=== PATIENT | female | born 1975 | race Two or more races ===

== ENCOUNTER 2018-11-04 23:05 | Emergency (ER) | payer SELFPAY ==
[~2018-11-04] VITALS: Ht 152.4 cm; Wt 91.6 kg
[~2018-11-04 23:05] MED LIST: IBUP-1060 PO; LABE300T2 PO; OXYC1TAB15 PO
[2018-11-04 23:35] VITALS: BP 159/78
[2018-11-05] MEDS ORDERED: METH4TAB2 PO (00:08)
[2018-11-05] MEDS ORDERED: ORPH100T PO (00:08)
[2018-11-05] MEDS ORDERED: GABA600T7 PO (00:08)
[2018-11-05] MEDS ORDERED: DICL50TA2 PO (00:08)
--- NOTE | 2018-11-05 00:08 | PHYS DOC ---
Past Medical History Past Surgical History: (OFE VAN APRN) Alcohol Use: None Drug Use: None (OFE VAN APRN) Adult General Chief Complaint Chief Complaint: UPPER EXTREMITY PAIN HPI HPI Patient is a 43 year old female with no significant medical history who presents to the ED today complaining of a 7 out of 10 throbbing left upper extremity pain that has been going on for 4 months. Patient states the pain began as far as she can remember after sleeping on her left upper extremity then waking up in the morning with the pain for months ago. She states the pain is intermittent worse on certain times, she states sometimes elevating the left upper extremity above her head helps with the pain. She states once in a while she has intermittent numbness or tingling to the left fingers specifically pinky finger and ring finger. She states the pain typically follows the lateral aspect of the left upper extremity/ulnar aspect. Patient denies any injury. She' s been taking anti-inflammatories from [place]. Family is interpreting for [place] (OFE VAN APRN) Review of Systems Review of Systems Constitutional: Denies fever or chills [] Eyes: Denies change in visual acuity, redness, or eye pain [] HENT: Denies nasal congestion or sore throat [] Respiratory: Denies cough or shortness of breath [] Cardiovascular: No additional information not addressed in HPI [] GI: Denies abdominal pain, nausea, vomiting, bloody stools or diarrhea [] : Denies dysuria or hematuria [] Musculoskeletal: Reports left upper extremity pain Integument: Denies rash or skin lesions [] Neurologic: Denies headache, focal weakness or sensory changes [] All other systems were reviewed and found to be within normal limits, except as documented in this note. (OFE VAN APRN) Current Medications Current Medications Current Medications Medications (Trade) Dose Ordered Sig/Rachael Start Time Stop Time Status Last Admin Dose Admin Acetaminophen/ Hydrocodone Bitart (Lortab 5/325) 1 tab 1X ONCE 11/05/18 00:30 11/05/18 00:30 DC 11/05/18 00:04 1 TAB Cyclobenzaprine HCl (Flexeril) 10 mg 1X ONCE 11/05/18 00:30 11/05/18 00:30 DC 11/05/18 00:03 10 MG Gabapentin (Neurontin) 300 mg 1X ONCE 11/05/18 00:30 11/05/18 00:30 DC 11/05/18 00:03 300 MG Prednisone (Prednisone) 50 mg 1X ONCE 11/05/18 00:30 11/05/18 00:30 DC 11/05/18 00:04 50 MG (CHAMP BAILEY DO) Allergies Allergies Allergies Coded Allergies Type Severity Reaction Last Updated Verified No Known Drug Allergies 06/29/14 No (CHAMP BAILEY DO) Physical Exam Physical Exam Constitutional: Well developed, well nourished, no acute distress, non-toxic appearance. [] HENT: Normocephalic, atraumatic, bilateral external ears normal, oropharynx moist, no oral exudates, nose normal. [] Eyes: PERRLA, EOMI, conjunctiva normal, no discharge. [] Neck: Normal range of motion, no tenderness, supple, no stridor. [] Cardiovascular:Heart rate regular rhythm, no murmur [] Lungs & Thorax: Bilateral breath sounds clear to auscultation [] Abdomen: Bowel sounds normal, soft, no tenderness, no masses, no pulsatile masses. [] Skin: Warm, dry, no erythema, no rash. [] Back: No tenderness, no CVA tenderness. [] Extremities: No tenderness, no cyanosis, no clubbing, ROM intact, no edema. [] Neurologic: Alert and oriented X 3, normal motor function, normal sensory function, no focal deficits noted. [] Psychologic: Affect normal, judgement normal, mood normal. [] (OFE VAN APRN) Current Patient Data Vital Signs Vital Signs Date Time Temp Pulse Resp B/P (MAP) Pulse Ox O2 Delivery O2 Flow Rate FiO2 11/05/18 00:04 16 99 Room Air 11/04/18 23:35 97.6 72 159/78 (105) 97.6 (CHAMP BALIEY DO) EKG EKG [] (OFE VAN APRN) Radiology/Procedures Radiology/Procedures [] (OFE VAN APRN) Course & Med Decision Making Course & Med Decision Making Pertinent Labs and Imaging studies reviewed. (See chart for details) This is a 43-year-old female patient presenting to the ED today with what appears to be radicular pain to the left upper extremity. Patient was instructed to follow-up with her PCP. Provided pain relief including gabapentin , Norflex, diclofenac, and Medrol Dosepak. Ice elevation recommended. (OFE VAN APRN) Dragon Disclaimer Dragon Disclaimer This electronic medical record was generated, in whole or in part, using a voice recognition dictation system. (OFE VAN APRN) Departure Departure Impression: Primary Impression: Radicular pain in left arm Disposition: HOME, SELF-CARE Condition: STABLE Referrals: NO PCP (PCP) follow up with your doctor in 1 week Patient Instructions: Radicular Pain Additional Instructions: You were evaluated in the emergency room for radicular pain. We put you on medications. Take them as prescribed. Continue to ice and elevate the extremity. Scripts Gabapentin (GABAPENTIN) 600 Mg Tablet 600 MG PO TID for NEUROGENIC PAIN, #30 TAB Prov: OFE VAN APRN 11/05/18 Methylprednisolone (MEDROL) 4 Mg Tab.ds.pk 1 PKG PO UD, #1 PKG Prov: OFE VAN APRN 11/05/18 Orphenadrine Citrate (ORPHENADRINE CITRATE) 100 Mg Tablet.er 1 TAB PO BID, #60 TAB 1 Refill Prov: OFE VAN APRN 11/05/18 Diclofenac Potassium (DICLOFENAC POTASSIUM) 50 Mg Tablet 1 TAB PO BID, #20 TAB 0 Refills Prov: OFE VAN APRN 11/05/18 Attending Signature Attending Signature I have reviewed the PA/STONE RUBBER's note and plan of care. I was available for consultation as needed during the patient's visit in the emergency department. I agree with the clinical impression, plan, and disposition. (CHAMP BAILEY DO) OFE VAN APRN Nov 05, 2018 00:08 CHAMP BAILEY DO Nov 05, 2018 04:33
[2018-11-05] MEDS ORDERED: CYCLOBENZAPRINE 10 MG TABLET. PO ONE (00:30)
[2018-11-05] MEDS ORDERED: HYDROcodone/APAP 5/325MG 1 TAB TABLET PO ONE (00:30)
[2018-11-05] MEDS ORDERED: GABAPENTIN 300 MG CAPSULE. PO ONE (00:30)
[2018-11-05] MEDS ORDERED: predniSONE 20 MG TABLET PO ONE (00:30)
== END 2018-11-05 00:12 | disposition home or self-care (01) ==
LOC: ER 23:05
DX: M79.602 Pain in left arm (principal); Z98.890 Other specified postprocedural states
CPT/HCPCS: 99284; J7512

== ENCOUNTER 2020-03-14 10:38 | Inpatient (IN) | payer SELFPAY ==
[~2020-03-14] VITALS: Ht 152.4 cm; Wt 86.5 kg
[~2020-03-14 10:38] MED LIST changes: +DICL50TA2 PO; +GABA600T7 PO; +METH4TAB2 PO; +ORPH100T PO
[2020-03-14 12:01] LABS: BASO % 0 % (0-3); EOS % 0 % (0-3); HEMOGLOBIN 13.4 g/dL (12.0-15.5); LYMPH # 1.6 x10^3/uL (1.0-4.8); LYMPH % 20 % (24-48); MEAN CORPUSCULAR HEMOGLOBIN 32 pg (25-35); MEAN CORPUSCULAR HGB CONC 35 g/dL (31-37); MEAN CORPUSCULAR VOLUME 92 fL (79-100); MONO # 0.2 x10^3/uL (0.0-1.1); MONO % 3 % (0-9); NEUT # 6.1 x10^3/uL (1.8-7.7); NEUT % 77 % (31-73); PLATELET COUNT 212 x10^3/uL (140-400); RED BLOOD COUNT 4.15 x10^6/uL (3.50-5.40); RED CELL DISTRIBUTION WIDTH 12.5 % (11.5-14.5)
[2020-03-14] MEDS ORDERED: DEXAMETHASONE SOD PHOS 20 MG/5 ML VIAL. IV ONE (12:15)
--- NOTE | 2020-03-14 12:15 | PHYS DOC ---
Past Medical History Past Medical History: Asthma, [place] Additional Past Medical Histor: pre-eclampsia, [place] with child in 2015 Past Surgical History: Smoking Status: Never Smoker Alcohol Use: None Drug Use: None General Adult EDM: Chief Complaint: SHORTNESS OF BREATH HPI: HPI: Patient is a 44 year old female who presents to the emergency department with complaints of a productive cough cough with blood in her sputum, chest tightness, chest pain, shortness of breath, loss of smell/taste, body aches, and fever that started 4 days ago. Patient denies any known exposure to COVID-19, she states the only place that she has been other than home was a [employer] store. She denies any nausea, vomiting, diarrhea, or abdominal pain. She reports that as of last night her breathing has become much more labored and difficult. She denies any rash or sore throat. She states that she does have a headache. Patient currently rates her pain a 8 out of 10 on the pain scale in her chest and her head. She reports that she took 3 Tylenol this morning with little relief in her pain, she states the pain is worse with breath and that she gets more short of breath with activity. Review of Systems: Review of Systems: Constitutional: Denies fever or chills. [] Eyes: Denies change in visual acuity. [] HENT: Denies nasal congestion or sore throat. [] Respiratory: Denies cough or shortness of breath. [] Cardiovascular: Denies chest pain or edema. [] GI: Denies abdominal pain, nausea, vomiting, bloody stools or diarrhea. [] : Denies dysuria. [] Musculoskeletal: Denies back pain or joint pain. [] Integument: Denies rash. [] Neurologic: Denies headache, focal weakness or sensory changes. [] Endocrine: Denies polyuria or polydipsia. [] Lymphatic: Denies swollen glands. [] Psychiatric: Denies depression or anxiety. [] Heart Score: Risk Factors: Risk Factors: DM, Current or recent (<one month) smoker, HTN, HLP, family history of CAD, obesity. Risk Scores: Score 0 - 3: 2.5% MACE over next 6 weeks - Discharge Home Score 4 - 6: 20.3% MACE over next 6 weeks - Admit for Clinical Observation Score 7 - 10: 72.7% MACE over next 6 weeks - Early Invasive Strategies Current Medications: Current Medications Medications (Trade) Dose Ordered Sig/Rachael Start Time Stop Time Status Last Admin Dose Admin Dexamethasone Sodium Phosphate (Decadron) 10 mg 1X ONCE 03/14/20 12:15 03/14/20 12:16 UNV Allergies: Allergies: Allergies Coded Allergies Type Severity Reaction Last Updated Verified No Known Drug Allergies 06/29/14 No Physical Exam: PE: Constitutional: Well developed, well nourished, no acute distress, non-toxic appearance. [] HENT: Normocephalic, atraumatic, bilateral external ears normal, oropharynx moist, no oral exudates, nose normal. [] Eyes: PERRLA, EOMI, conjunctiva normal, no discharge. [] Neck: Normal range of motion, no tenderness, supple, no stridor. [] Cardiovascular:Heart rate regular rhythm, no murmur [] Lungs & Thorax: Bilateral breath sounds clear to auscultation [] Abdomen: Bowel sounds normal, soft, no tenderness, no masses, no pulsatile masses. [] Skin: Warm, dry, no erythema, no rash. [] Back: No tenderness, no CVA tenderness. [] Extremities: No tenderness, no cyanosis, no clubbing, ROM intact, no edema. [] Neurologic: Alert and oriented X 3, normal motor function, normal sensory function, no focal deficits noted. [] Psychologic: Affect normal, judgement normal, mood normal. [] Current Patient Data: Labs: Laboratory Tests Test 03/14/20 11:40 White Blood Count 8.0 x10^3/uL (4.0-11.0) Red Blood Count 4.15 x10^6/uL (3.50-5.40) Hemoglobin 13.4 g/dL (12.0-15.5) Hematocrit 38.0 % (36.0-47.0) Mean Corpuscular Volume 92 fL (79-100) Mean Corpuscular Hemoglobin 32 pg (25-35) Mean Corpuscular Hemoglobin Concent 35 g/dL (31-37) Red Cell Distribution Width 12.5 % (11.5-14.5) Platelet Count 212 x10^3/uL (140-400) Neutrophils (%) (Auto) 77 % (31-73) H Lymphocytes (%) (Auto) 20 % (24-48) L Monocytes (%) (Auto) 3 % (0-9) Eosinophils (%) (Auto) 0 % (0-3) Basophils (%) (Auto) 0 % (0-3) Neutrophils # (Auto) 6.1 x10^3/uL (1.8-7.7) Lymphocytes # (Auto) 1.6 x10^3/uL (1.0-4.8) Monocytes # (Auto) 0.2 x10^3/uL (0.0-1.1) Eosinophils # (Auto) 0.0 x10^3/uL (0.0-0.7) Basophils # (Auto) 0.0 x10^3/uL (0.0-0.2) Laboratory Tests 03/14/20 11:40 Vital Signs: Vital Signs Date Time Temp Pulse Resp B/P (MAP) Pulse Ox O2 Delivery O2 Flow Rate FiO2 03/14/20 11:54 98.4 72 26 106/68 (81) 94 Room Air 98.4 EKG: EK-sinus rhythm, rate 71, no STEMI read by Dr. Edgar Radiology/Procedures: Radiology/Procedures: PROCEDURE: CHEST AP ONLY CHEST AP ONLY History: Reason: n/v/d, PUI / Spl. Instructions: / History: Comparison: None. Findings: Multifocal ill-defined patchy opacities bilaterally. No pleural effusion. No pneumothorax. Normal heart size. Density adjacent to the proximal humerus in the region of the rotator cuff, may indicate calcific tendinosis or dystrophic ossification. Impression: 1. Multifocal ill-defined patchy opacities bilaterally, can be seen with viral pneumonia.[] Course & Med Decision Making: Course & Med Decision Making Pertinent Labs and Imaging studies reviewed. (See chart for details) [id number] with Dr. Marcelo who is the admitting physician, and care was assumed following discussion of patient. Will admit patient for shortness of breath and PUI to med telemetry floor. Advised Dr. Marcelo of pending CT report Patient's vital signs stable. Patient remains afebrile, appears nontoxic, respirations even and unlabored. Patient will be admitted to the med telemetry floor. Patient's case and plan of care also discussed with Dr.Koch Brothers Disclaimer: Deneen Disclaimer: This electronic medical record was generated, in whole or in part, using a voice recognition dictation system. Departure Departure Impression: Primary Impression: Shortness of breath Additional Impression: Person under investigation for COVID-19 Disposition: 09 ADMITTED INPATIENT Admitting Physician: MAURA Cade) Condition: STABLE Referrals: NO PCP (PCP) Justicifation of Admission Dx: Justifications for Admission: Justification of Admission Dx: Yes Respiratory Failure: Severe Resp Distress BRENNEN CLARK POWER MANAGER Mar 14, 2020 12:15
[2020-03-14 12:17] LABS: CALCIUM 8.7 mg/dL (8.5-10.1); CREATININE 0.8 mg/dL (0.6-1.0); GFR 77.9; POTASSIUM 3.5 mmol/L (3.5-5.1)
--- NOTE | 2020-03-14 12:37 | RAD ---
CHEST AP ONLY History: Reason: n/v/d, PUI / Spl. Instructions: / History: Comparison: None. Findings: Multifocal ill-defined patchy opacities bilaterally. No pleural effusion. No pneumothorax. Normal heart size. Density adjacent to the proximal humerus in the region of the rotator cuff, may indicate calcific tendinosis or dystrophic ossification. Impression: 1. Multifocal ill-defined patchy opacities bilaterally, can be seen with viral pneumonia. Electronically signed by: Lui Cheng DO (03/14/2020 12:34 PM) [id number]
[2020-03-14 12:38] LABS: ALBUMIN 2.9 g/dL (3.4-5.0); ALBUMIN/GLOBULIN RATIO 0.6 (1.0-1.7); C-REACTIVE PROTEIN 50.5 mg/L (0-3.3); MAGNESIUM 1.9 mg/dL (1.8-2.4); TOTAL BILIRUBIN 0.2 mg/dL (0.2-1.0); TOTAL PROTEIN 7.8 g/dL (6.4-8.2)
[2020-03-14] MEDS ORDERED: IOHEXOL 350 MG/ML 100 ML VIAL. IV ONE (13:00)
[2020-03-14] MEDS ORDERED: CONTRAST GIVEN. MC PRN (13:00)
[2020-03-14 13:02] LABS: BILIRUBIN,URINE NEGATIVE (NEG); CLARITY,URINE CLEAR; COLOR,URINE YELLOW; NITRITE,URINE NEGATIVE (NEG); PROTEIN,URINE NEGATIVE (NEG-TRACE); UROBILINOGEN,URINE 0.2 mg/dL (0.2 mg/dL)
[2020-03-14 13:05] LABS: SQUAMOUS EPITHELIAL CELL,UR MOD /LPF
[2020-03-14 13:06] LABS: BACTERIA,URINE FEW /HPF (0-FEW); RBC,URINE OCC /HPF (0-2)
[2020-03-14 13:41] LABS: U PREG PATIENT NEGATIVE (NEG)
--- NOTE | 2020-03-14 13:59 | RAD ---
CTA scan of the Chest with Contrast (Pulmonary Embolism protocol) 03/14/2020 Clinical History: Elevated d-dimer. Technique: After the intravenous administration of 100 cc of Omnipaque 350, contiguous, 0.625 mm axial sections were obtained through the chest. 2 mm axial and 3D MIP coronal and sagittal reconstructed images were obtained. One or more of the following individualized dose reduction techniques were utilized for this study: 1. Automated exposure control. 2. Adjustment of the mA and/or kV according to patient size. 3. Use of iterative reconstruction technique. Findings: Comparison is made to the patient's chest radiograph performed earlier today. No filling defect is seen within the major branches of either pulmonary artery. There is no CT evidence of pulmonary embolism. The heart and thoracic aorta are within normal limits. Patchy predominantly peripheral perihilar infiltrates are seen throughout both lungs. A 8mm calcified granuloma is seen involving the left lower lobe. No pneumothorax or pleural effusion is seen. Impression: 1. There is no CT evidence of pulmonary embolism. 2. Bilateral perihilar infiltrates. Electronically signed by: Shayne Blanton MD (03/14/2020 1:56 PM) [id number]
--- NOTE | 2020-03-14 14:31 | PDOC1 ---
History and Physical Date of Admission: Date of Admission DATE: 03/14/20 TIME: 14:28 Chief Complaint: Problems: (1) Grand multiparity (2) CHF (congestive heart failure) (3) Eclampsia, with delivery, with current complication (4) PIH ( induced hypertension), antepartum (5) Supervision of normal IUP (intrauterine ) in multigravida (6) Radicular pain in left arm (7) Shortness of breath (8) Person under investigation for COVID-19 Chief Complain: Shortness of breath cough fevers headache History of Present Illness: HPI: This is a middle-aged female who thinks she may have been exposed to COVID-19 at a "storage center" She presents today with shortness of breath fever headache chest pain She becomes tachypneic with speech to greater than 30 breaths/min Her sats are holding at 92 to 94% Her d-dimer is also elevated she has other lab abnormalities She rates her symptoms at 7 out of 10 she has associated weakness Worse with moving better with sitting still This is been coming on for couple of days We suspect she might have COVID-19 and indeed her chest x-ray shows bilateral infiltrates we are going admit the patient with consultation to pulmonary medicine and infectious disease Past Medical/Surgical History: PMH/PSH: Past Medical History: Asthma, [place] Additional Past Medical Histor: pre-eclampsia, [place] with child in 2014 Past Surgical History: Allergies: Allergies: Coded Allergies: No Known Drug Allergies (Unverified , 06/29/14) Family History: Family History: Hypertension Social History: Social History: She does not drink smoke or take drugs Current Medications: Current Medications Current Medications Dexamethasone Sodium Phosphate (Decadron) 10 mg 1X ONCE IV Last administered on 03/14/20at 12:46; Start 03/14/20 at 12:15; Stop 03/14/20 at 12:16; Status DC Iohexol (Omnipaque 350 Mg/ml) 100 ml 1X ONCE IV Last administered on 03/14/20at 13:24; Start 03/14/20 at 13:00; Stop 03/14/20 at 13:01; Status DC Info (CONTRAST GIVEN -- Rx MONITORING) 1 each PRN DAILY PRN MC SEE COMMENTS; Start 03/14/20 at 13:00; Stop 03/16/20 at 12:59 Active Scripts Active Gabapentin 600 Mg Tablet 600 Mg PO TID Medrol (Methylprednisolone) 4 Mg Tab.ds.pk 1 Pkg PO UD Orphenadrine Citrate 100 Mg Tablet.er 1 Tab PO BID Diclofenac Potassium 50 Mg Tablet 1 Tab PO BID Labetalol Hcl 300 Mg Tablet 1 Tab PO BID Percocet 5-325 Mg Tablet (Oxycodone/Acetaminophen) 1 Each Tablet 1 Tab PO Q4HRS PRN Ibuprofen 800 Mg Tablet 800 Mg PO Q6H PRN ROS: Review of Systems Review of System REVIEW OF SYSTEMS: GENERAL: Complains of weakness SKIN: No bruising, hair changes or rashes. EYES: No blurred, double or loss of vision. NOSE AND THROAT: No history of nosebleeds, hoarseness or sore throat. HEART: No history of palpitations, chest pain or shortness of breath on exertion. LUNGS: Complains of shortness of breath GASTROINTESTINAL: Denies changes in appetite, nausea, vomiting, diarrhea or constipation. GENITOURINARY: No history of frequency, urgency, hesitancy or nocturia. NEUROLOGIC: Complains of a headache and weakness PSYCHIATRIC: No history of panic, anxiety or depression. ENDOCRINE: No history of heat or cold intolerance, polyuria or polydipsia. EXTREMITIES: Denies joint pain, pain on walking or stiffness. Physical Exam: Vital Signs: Vital Signs Date Time Temp Pulse Resp B/P (MAP) Pulse Ox O2 Delivery O2 Flow Rate FiO2 03/14/20 13:27 80 20 123/68 (86) 97 Room Air 03/14/20 11:54 98.4 98.4 Physcial Exam: GEN: Appears weak a little anxious HEENT: Normal cephalic, atraumatic, external auditory canals are patent EYES: Extraocular muscles are intact, pupil are equally round and reactive to light and accommodation MUSCULOSKELETAL: Well developed , well nourished, good range of motion ENDOCRINE: No thyromegaly was palpated LYMPHATICS: No cervical chain or axillary nodes were noted HEMATOPOIETIC: No bruising NECK: Supple, no JVD, no thyromegaly was noted LUNGS: Bibasilar crackles a little tachypneic HEART: RRR, S!, S2 present. Peripheral pulses intact, no obvious murmurs noted ABDOMEN: Soft, nontender. Positive bowel sounds, no organomegaly, normal bowel sounds EXTREMITIES: Without clubbing, cyanosis, or edema. Pedal pulses intact. Negative Homans sign NEUROLOGIC: Normal speech and tone. A&O x 3, moves all extremities, no obvious focal deficits PSYCHIATRIC: Normal affect, normal mood. Stable SKIN: No ulcerations or rashes, good skin turgor, no jaundice VASCULAR: Good capillary refill, neurovascular bundle appears to be intact Labs: Labs: Laboratory Tests Test 03/14/20 11:40 03/14/20 12:48 White Blood Count 8.0 x10^3/uL (4.0-11.0) Red Blood Count 4.15 x10^6/uL (3.50-5.40) Hemoglobin 13.4 g/dL (12.0-15.5) Hematocrit 38.0 % (36.0-47.0) Mean Corpuscular Volume 92 fL (79-100) Mean Corpuscular Hemoglobin 32 pg (25-35) Mean Corpuscular Hemoglobin Concent 35 g/dL (31-37) Red Cell Distribution Width 12.5 % (11.5-14.5) Platelet Count 212 x10^3/uL (140-400) Neutrophils (%) (Auto) 77 % (31-73) Lymphocytes (%) (Auto) 20 % (24-48) Monocytes (%) (Auto) 3 % (0-9) Eosinophils (%) (Auto) 0 % (0-3) Basophils (%) (Auto) 0 % (0-3) Neutrophils # (Auto) 6.1 x10^3/uL (1.8-7.7) Lymphocytes # (Auto) 1.6 x10^3/uL (1.0-4.8) Monocytes # (Auto) 0.2 x10^3/uL (0.0-1.1) Eosinophils # (Auto) 0.0 x10^3/uL (0.0-0.7) Basophils # (Auto) 0.0 x10^3/uL (0.0-0.2) D-Dimer (Mallorie) 0.93 ug/mlFEU (0.00-0.50) Sodium Level 139 mmol/L (136-145) Potassium Level 3.5 mmol/L (3.5-5.1) Chloride Level 102 mmol/L (98-107) Carbon Dioxide Level 26 mmol/L (21-32) Anion Gap 11 (6-14) Blood Urea Nitrogen 10 mg/dL (7-20) Creatinine 0.8 mg/dL (0.6-1.0) Estimated GFR (Cockcroft-Gault) 77.9 BUN/Creatinine Ratio 13 (6-20) Glucose Level 98 mg/dL (70-99) Calcium Level 8.7 mg/dL (8.5-10.1) Magnesium Level 1.9 mg/dL (1.8-2.4) Ferritin 486 ng/mL (8-252) Total Bilirubin 0.2 mg/dL (0.2-1.0) Aspartate Amino Transf (AST/SGOT) 40 U/L (15-37) Alanine Aminotransferase (ALT/SGPT) 44 U/L (14-59) Alkaline Phosphatase 62 U/L (46-116) Creatine Kinase 92 U/L (26-192) Troponin I Quantitative < 0.017 ng/mL (0.000-0.055) C-Reactive Protein, Quantitative 50.5 mg/L (0-3.3) [id number]-Type Natriuretic Peptide 226 pg/mL (0-124) Total Protein 7.8 g/dL (6.4-8.2) Albumin 2.9 g/dL (3.4-5.0) Albumin/Globulin Ratio 0.6 (1.0-1.7) Lipase 107 U/L (73-393) Urine Collection Type Unknown Urine Color Yellow Urine Clarity Clear Urine pH 7.0 (<5.0-8.0) Urine Specific [place] 1.010 (1.000-1.030) Urine Protein Negative mg/dL (NEG-TRACE) Urine Glucose (UA) Negative mg/dL (NEG) Urine Ketones (Stick) Negative mg/dL (NEG) Urine Blood Negative (NEG) Urine Nitrite Negative (NEG) Urine Bilirubin Negative (NEG) Urine Urobilinogen Dipstick 0.2 mg/dL (0.2 mg/dL) Urine Leukocyte Esterase Negative (NEG) Urine RBC Occ /HPF (0-2) Urine WBC 1-4 /HPF (0-4) Urine Squamous Epithelial Cells Mod /LPF Urine Bacteria Few /HPF (0-FEW) Urine Test Negative (NEG) Laboratory Tests Test 03/14/20 11:40 7/10/20 12:48 White Blood Count 8.0 x10^3/uL (4.0-11.0) Red Blood Count 4.15 x10^6/uL (3.50-5.40) Hemoglobin 13.4 g/dL (12.0-15.5) Hematocrit 38.0 % (36.0-47.0) Mean Corpuscular Volume 92 fL (79-100) Mean Corpuscular Hemoglobin 32 pg (25-35) Mean Corpuscular Hemoglobin Concent 35 g/dL (31-37) Red Cell Distribution Width 12.5 % (11.5-14.5) Platelet Count 212 x10^3/uL (140-400) Neutrophils (%) (Auto) 77 % (31-73) Lymphocytes (%) (Auto) 20 % (24-48) Monocytes (%) (Auto) 3 % (0-9) Eosinophils (%) (Auto) 0 % (0-3) Basophils (%) (Auto) 0 % (0-3) Neutrophils # (Auto) 6.1 x10^3/uL (1.8-7.7) Lymphocytes # (Auto) 1.6 x10^3/uL (1.0-4.8) Monocytes # (Auto) 0.2 x10^3/uL (0.0-1.1) Eosinophils # (Auto) 0.0 x10^3/uL (0.0-0.7) Basophils # (Auto) 0.0 x10^3/uL (0.0-0.2) D-Dimer (Mallorie) 0.93 ug/mlFEU (0.00-0.50) Sodium Level 139 mmol/L (136-145) Potassium Level 3.5 mmol/L (3.5-5.1) Chloride Level 102 mmol/L (98-107) Carbon Dioxide Level 26 mmol/L (21-32) Anion Gap 11 (6-14) Blood Urea Nitrogen 10 mg/dL (7-20) Creatinine 0.8 mg/dL (0.6-1.0) Estimated GFR (Cockcroft-Gault) 77.9 BUN/Creatinine Ratio 13 (6-20) Glucose Level 98 mg/dL (70-99) Calcium Level 8.7 mg/dL (8.5-10.1) Magnesium Level 1.9 mg/dL (1.8-2.4) Ferritin 486 ng/mL (8-252) Total Bilirubin 0.2 mg/dL (0.2-1.0) Aspartate Amino Transf (AST/SGOT) 40 U/L (15-37) Alanine Aminotransferase (ALT/SGPT) 44 U/L (14-59) Alkaline Phosphatase 62 U/L (46-116) Creatine Kinase 92 U/L (26-192) Troponin I Quantitative < 0.017 ng/mL (0.000-0.055) C-Reactive Protein, Quantitative 50.5 mg/L (0-3.3) [id number]-Keu-I-Type Natriuretic Peptide 226 pg/mL (0-124) Total Protein 7.8 g/dL (6.4-8.2) Albumin 2.9 g/dL (3.4-5.0) Albumin/Globulin Ratio 0.6 (1.0-1.7) Lipase 107 U/L (73-393) Urine Collection Type Unknown Urine Color Yellow Urine Clarity Clear Urine pH 7.0 (<5.0-8.0) Urine Specific [place] 1.010 (1.000-1.030) Urine Protein Negative mg/dL (NEG-TRACE) Urine Glucose (UA) Negative mg/dL (NEG) Urine Ketones (Stick) Negative mg/dL (NEG) Urine Blood Negative (NEG) Urine Nitrite Negative (NEG) Urine Bilirubin Negative (NEG) Urine Urobilinogen Dipstick 0.2 mg/dL (0.2 mg/dL) Urine Leukocyte Esterase Negative (NEG) Urine RBC Occ /HPF (0-2) Urine WBC 1-4 /HPF (0-4) Urine Squamous Epithelial Cells Mod /LPF Urine Bacteria Few /HPF (0-FEW) Urine Test Negative (NEG) Images: Images Chest x-ray showing bilateral infiltrates Justicifation of Admission Dx: Justifications for Admission: Justification of Admission Dx: Yes Respiratory Failure: Severe Resp Distress DAMEON JOEL III DO Mar 14, 2020 14:31
[2020-03-14] MEDS ORDERED: PIP/TAZO PER PHARMACY MC PRN (14:45)
[2020-03-14] MEDS ORDERED: AZITHRMYCN 500MG IVPB FOR OMNI 250 ML IV ONE (15:00)
[2020-03-14] MEDS ORDERED: PIPERACILLIN/TAZOBACTAM 3.375 GM in IV NORMAL SALINE 50ML 50 ML IV ONE (15:00)
[2020-03-14 16:30] VITALS: BP 109/57
[2020-03-14] MEDS: AZITHROMYCIN 500 MG in IV NORMAL SALINE 250ML 250 ML IV SCH (18:19)
[2020-03-14 19:00] VITALS: BP 109/58
[2020-03-14] MEDS: PIPERACILLIN/TAZOBACTAM 3.375 GM in IV NORMAL SALINE 50ML 50 ML IV SCH (21:30)
[2020-03-14 23:23] VITALS: BP 106/58
--- NOTE | 2020-03-15 01:29 | NUR ---
Called and spoke to Pharmacy questioning zosyn time and informed ok to give dose at this time.
[2020-03-15] MEDS: PIPERACILLIN/TAZOBACTAM 3.375 GM in IV NORMAL SALINE 50ML 50 ML IV SCH ×5 (01:31→23:22)
[2020-03-15 03:01] VITALS: BP 103/56
[2020-03-15 07:59] VITALS: BP 104/61
--- NOTE | 2020-03-15 08:54 | PDOC ---
Infectious Disease Note Vital Sign Vital Signs Vital Signs Date Time Temp Pulse Resp B/P (MAP) Pulse Ox O2 Delivery O2 Flow Rate FiO2 03/15/20 03:01 98.3 60 16 103/56 (72) 97 Nasal Cannula 2.5 98.3 Labs Lab Laboratory Tests Test 03/14/20 11:40 03/14/20 12:48 White Blood Count 8.0 x10^3/uL (4.0-11.0) Red Blood Count 4.15 x10^6/uL (3.50-5.40) Hemoglobin 13.4 g/dL (12.0-15.5) Hematocrit 38.0 % (36.0-47.0) Mean Corpuscular Volume 92 fL (79-100) Mean Corpuscular Hemoglobin 32 pg (25-35) Mean Corpuscular Hemoglobin Concent 35 g/dL (31-37) Red Cell Distribution Width 12.5 % (11.5-14.5) Platelet Count 212 x10^3/uL (140-400) Neutrophils (%) (Auto) 77 % (31-73) Lymphocytes (%) (Auto) 20 % (24-48) Monocytes (%) (Auto) 3 % (0-9) Eosinophils (%) (Auto) 0 % (0-3) Basophils (%) (Auto) 0 % (0-3) Neutrophils # (Auto) 6.1 x10^3/uL (1.8-7.7) Lymphocytes # (Auto) 1.6 x10^3/uL (1.0-4.8) Monocytes # (Auto) 0.2 x10^3/uL (0.0-1.1) Eosinophils # (Auto) 0.0 x10^3/uL (0.0-0.7) Basophils # (Auto) 0.0 x10^3/uL (0.0-0.2) D-Dimer (Mallorie) 0.93 ug/mlFEU (0.00-0.50) Sodium Level 139 mmol/L (136-145) Potassium Level 3.5 mmol/L (3.5-5.1) Chloride Level 102 mmol/L (98-107) Carbon Dioxide Level 26 mmol/L (21-32) Anion Gap 11 (6-14) Blood Urea Nitrogen 10 mg/dL (7-20) Creatinine 0.8 mg/dL (0.6-1.0) Estimated GFR (Cockcroft-Gault) 77.9 BUN/Creatinine Ratio 13 (6-20) Glucose Level 98 mg/dL (70-99) Calcium Level 8.7 mg/dL (8.5-10.1) Magnesium Level 1.9 mg/dL (1.8-2.4) Ferritin 486 ng/mL (8-252) Total Bilirubin 0.2 mg/dL (0.2-1.0) Aspartate Amino Transf (AST/SGOT) 40 U/L (15-37) Alanine Aminotransferase (ALT/SGPT) 44 U/L (14-59) Alkaline Phosphatase 62 U/L (46-116) Creatine Kinase 92 U/L (26-192) Troponin I Quantitative < 0.017 ng/mL (0.000-0.055) C-Reactive Protein, Quantitative 50.5 mg/L (0-3.3) DK-Tiz-F-Type Natriuretic Peptide 226 pg/mL (0-124) Total Protein 7.8 g/dL (6.4-8.2) Albumin 2.9 g/dL (3.4-5.0) Albumin/Globulin Ratio 0.6 (1.0-1.7) Lipase 107 U/L (73-393) Urine Collection Type Unknown Urine Color Yellow Urine Clarity Clear Urine pH 7.0 (<5.0-8.0) Urine Specific [place] 1.010 (1.000-1.030) Urine Protein Negative mg/dL (NEG-TRACE) Urine Glucose (UA) Negative mg/dL (NEG) Urine Ketones (Stick) Negative mg/dL (NEG) Urine Blood Negative (NEG) Urine Nitrite Negative (NEG) Urine Bilirubin Negative (NEG) Urine Urobilinogen Dipstick 0.2 mg/dL (0.2 mg/dL) Urine Leukocyte Esterase Negative (NEG) Urine RBC Occ /HPF (0-2) Urine WBC 1-4 /HPF (0-4) Urine Squamous Epithelial Cells Mod /LPF Urine Bacteria Few /HPF (0-FEW) Urine Test Negative (NEG) Micro CT Impression: 1. There is no CT evidence of pulmonary embolism. 2. Bilateral perihilar infiltrates. Objective Assessment Cough B infiltrates Acute hypoxic resp failure Obesity Plan Plan of Care Cont abx Additional steroids per pulm F/u labs/Cults/COVID Await pulm eloyal D/w nursing Thank you # [phone] ANJEL ACOSTA MD Mar 15, 2020 08:54
[2020-03-15] MEDS ORDERED: AZITHRMYCN 500MG IVPB FOR OMNI 250 ML IV SCH (09:00)
[2020-03-15] MEDS: MULTIVITAMIN with MINERAL TABLET. PO SCH (09:12)
--- NOTE | 2020-03-15 11:13 | CONS ---
DATE OF CONSULTATION: 03/15/2020 INFECTIOUS DISEASE CONSULTATION NOTE LOCATION: The patient's room is 675. REQUESTING PHYSICIAN: Dr. Marcelo. REASON FOR CONSULTATION: Questionable COVID. HISTORY OF PRESENT ILLNESS: The patient is a pleasant 44-year-old female who states for the past week she has been having increased shortness of air and cough but over the last 3 days, things have worsened and she has had some sweats and chills and low-grade fever. She presented to [facility] on 03/14/2020 with sore throat and sinus congestion. She has been afebrile. White blood cell count was 8, AST was 40, ALT was 44. Chest x-ray had multifocal ill-defined patchy opacities. She underwent CTA, no evidence of pulmonary embolism, but had bilateral pulmonary infiltrates. She has been placed on azithromycin and Zosyn and admitted to the hospital. Currently, she is sitting upright in bed, she is smiling but she says she is tired, she did not sleep well secondary to the alarms going off. She has had a little loose stool but no dysuria or rashes, no joint aches. PAST MEDICAL HISTORY: Positive for hypertension, obesity, congestive heart failure, preeclampsia, asthma, questionable myocardial infarction with childbirth in 2014. PAST SURGICAL HISTORY: Positive for . ALLERGIES: No known drug allergies. SOCIAL HISTORY: No tobacco. No alcohol. She has not been out except to the grocery store. She did wear a mask. She denies any ill contacts. FAMILY HISTORY: Noncontributory. CURRENT MEDICATIONS: Include azithromycin, dexamethasone x 1, Zosyn. PHYSICAL EXAMINATION: VITAL SIGNS: She is afebrile, temperature 98.2, pulse 64, respirations 20, blood pressure 104/61, satting 95% on room air currently. She had been 97% nasal cannula 2.5. CONSTITUTIONAL: She is pleasant. She is smiling. She looks tired, but she is in no acute distress. She is sitting upright. HEENT: Pupils equal and reactive. She has normal conjunctivae. Oral cavity, pharynx was clear. NECK: Supple. Good range of motion. LUNGS: Without wheeze. HEART: S1, S2. ABDOMEN: Obese, soft, nontender, no guarding or rebound. EXTREMITIES: No clubbing, cyanosis or gross edema. SKIN: Warm to touch without signs of rash. NEUROLOGIC: She is nonfocal. PSYCHIATRIC: Affect is appropriate. LABORATORY AND DIAGNOSTIC DATA: Laboratory values: White count was 8, hemoglobin 13.4, platelets of 212, neutrophils of 77. Creatinine was 0.8, glucose was 98, AST 40, ALT 44, BNP pro 226, CRP of 50.5, normal troponin. Urinalysis is clean. was negative. Radiology reviewed in history of present illness. IMPRESSION: 1. Cough. 2. Bilateral infiltrates. 3. Acute hypoxic respiratory failure. 4. Obesity. RECOMMENDATIONS: Continue antibiotics. Additional steroids per Pulmonary. Follow up labs and cultures, COVID. Await pulmonary evaluation. This was discussed with nursing. Thank you for the patient's care. Should you have any questions, please do not hesitate to contact me. ANJEL ACOSTA MD DR: ROSA/joaquín JOB#: [id number] / [id number] MAGO
[2020-03-15 11:33] VITALS: BP 101/56
[2020-03-15] MEDS: ACETAMINOPHEN 325 MG TABLET. PO PRN (13:09)
--- NOTE | 2020-03-15 14:18 | CONS ---
DATE OF CONSULTATION: 03/15/2020 I was asked to see this 44-year-old lady for possible COVID-19, acute respiratory failure. HISTORY OF PRESENT ILLNESS: She is a nonsmoker. She has had shortness of breath, cough, fever and chills for the past few days. She has been weak. PAST MEDICAL HISTORY: Asthma, myocardial infarction in 2015 with childbirth, . SOCIAL HISTORY: She does not smoke. FAMILY HISTORY: Hypertension. ALLERGIES: No known drug allergies. MEDICATIONS: Currently, she is on azithromycin and Zosyn. REVIEW OF SYSTEMS: As mentioned as above, other systems otherwise negative. PHYSICAL EXAMINATION: GENERAL: This is a well-developed lady. VITAL SIGNS: Her O2 saturation on 3 liters of oxygen is 95%, respiratory rate 20, heart rate 64, blood pressure 104/61, temperature 98.2, maximum temperature 99.1. HEENT: Normocephalic, atraumatic. She appears comfortable. She is on oxygen. CARDIOVASCULAR: Regular rate and rhythm. LUNGS: There are no audible wheezing. ABDOMEN: There is no paradoxical abdominal motion. EXTREMITIES: There is no edema. NEUROLOGIC: Alert and oriented. LABORATORY DATA: I reviewed the following lab data: CT of the chest did not show a PE, showed bilateral infiltrates. WBC 8, hemoglobin 13.4, platelets 212. Sodium 139, potassium 3.5, chloride 102, CO2 of 26, glucose 98, BUN 10, creatinine 0.8. Troponin less than 0.01. BNP 226. D-dimer 0.93. IMPRESSION: 1. Acute respiratory failure secondary to pneumonia, rule out COVID-19. 2. Abnormal chest x-ray. 3. Pneumonia. 4. Asthma. 5. COVID-19 patient under investigation. PLAN AND RECOMMENDATIONS: 1. Titrate FiO2 to keep O2 saturation 92%. 2. Continue antibiotic. ID is consulted. 3. Add steroids. 4. Follow up cultures. 5. Follow up COVID-19 testing. 6. Lovenox for DVT prophylaxis. Thank you very much for allowing me to participate in care of this very nice lady. LISETTE CHILDERS M.D. DR: MOIZ/joaquín JOB#: [id number] / [id number]
[2020-03-15] MEDS: ENOXAPARIN 40 MG/0.4 ML SYRINGE. SQ SCH (15:23)
[2020-03-15] MEDS: methylPREDNISolone SOD SUCC PF 40 MG/ML VIAL. IV SCH ×2 (15:23→20:48)
[2020-03-15 15:59] VITALS: BP 90/54
[2020-03-15 19:58] VITALS: BP 109/63
[2020-03-15] MEDS: LACTOBACILLUS RHAMNOSUS GG 1 CAPSULE. PO SCH (20:48)
[2020-03-15] MEDS: ZOLPIDEM 5 MG TABLET. PO PRN (20:48)
--- NOTE | 2020-03-15 21:34 | PDOC ---
GENERAL General: Patient examined chart reviewed today is hospital day 2 for this patient with c ough and shortness of breath found to have COVID-19 pneumonia. She tells me that she has several children at home the youngest of which is 5 years old with autism and she worries greatly about them. She is feeling a little bit better from the respiratory perspective but is quite anxious about her situation wondering about next steps. She tells me that all of her children are feeling fine with the oldest being 20 years old and he is able to take care of the younger children we will reassess progress in the morning. Problems: (1) Pneumonia due to COVID-19 virus VITAL SIGNS Vital Signs/I&O: Vital Signs Date Time Temp Pulse Resp B/P (MAP) Pulse Ox O2 Delivery O2 Flow Rate FiO2 03/15/20 19:58 98.7 76 19 109/63 (78) 95 Nasal Cannula 2.5 98.7 In general the patient is pleasant alert and oriented x3 no acute distress somewhat anxious HEENT exam is unremarkable Chest is clear to auscultation mild dyspnea when talking about her situation no crackles or wheezes are noted Heart S1-S2 normal regular rate and rhythm no murmurs or gallops are noted Abdomen soft nontender nondistended no masses organomegaly noted Extremity exam is unremarkable for acute abnormality ALLERGIES Allergies: Allergies Coded Allergies Type Severity Reaction Last Updated Verified No Known Drug Allergies 06/29/14 No MEDS Medications: Current Medications Medications (Trade) Dose Ordered Sig/[facility] Start Time Stop Time Status Last Admin Dose Admin Acetaminophen (Tylenol) 650 mg PRN Q4HRS PRN 03/15/20 10:00 03/15/20 13:09 Azithromycin 250 ml @ 250 mls/hr ONCE ONCE 03/14/20 15:00 03/14/20 18:23 DC Azithromycin 500 mg/Sodium Chloride 250 ml @ 250 mls/hr Q24H 03/15/20 15:00 03/14/20 18:19 Dexamethasone Sodium Phosphate (Decadron) 10 mg 1X ONCE 03/14/20 12:15 03/14/20 12:16 DC 03/14/20 12:46 Enoxaparin Sodium (Lovenox 40mg Syringe) 40 mg Q24H 03/15/20 15:00 03/15/20 15:23 Info (CONTRAST GIVEN -- Rx MONITORING) 1 each PRN DAILY PRN 03/14/20 13:00 03/16/20 12:59 Iohexol (Omnipaque 350 Mg/ml) 100 ml 1X ONCE 03/14/20 13:00 03/14/20 13:01 DC 03/14/20 13:24 Lactobacillus Rhamnosus (Culturelle) 1 cap BID 03/15/20 21:00 03/15/20 20:48 Methylprednisolone Sodium Succinate (SOLU-Medrol 40MG VIAL) 40 mg Q12HR 03/15/20 14:15 03/15/20 20:48 Multivitamins (Thera M Plus) 1 tab DAILY 03/15/20 09:00 03/15/20 09:12 Piperacillin Sod/ Tazobactam Sod (Zosyn Per Pharmacy) 1 each PRN DAILY PRN 03/14/20 14:45 Piperacillin Sod/ Tazobactam Sod 3.375 gm/Sodium Chloride 50 ml @ 100 mls/hr Q6HRS 03/14/20 20:00 03/15/20 17:43 Zolpidem Tartrate (Ambien) 5 mg PRN QHS PRN 03/15/20 20:45 03/15/20 20:48 Current Medications Medications (Trade) Dose Ordered Sig/Rachael Route PRN Reason Start Time Stop Time Status Last Admin Dose Admin Multivitamins (Thera M Plus) 1 tab DAILY PO 03/15/20 09:00 03/15/20 09:12 Azithromycin 500 mg/Sodium Chloride 250 ml @ 250 mls/hr Q24H IV 03/15/20 15:00 03/14/20 18:19 Acetaminophen (Tylenol) 650 mg PRN Q4HRS PRN PO MILD PAIN 1-3 03/15/20 10:00 03/15/20 13:09 Enoxaparin Sodium (Lovenox 40mg Syringe) 40 mg Q24H SQ 03/15/20 15:00 03/15/20 15:23 Methylprednisolone Sodium Succinate (SOLU-Medrol 40MG VIAL) 40 mg Q12HR IV 03/15/20 14:15 03/15/20 20:48 Lactobacillus Rhamnosus (Culturelle) 1 cap BID PO 03/15/20 21:00 03/15/20 20:48 Zolpidem Tartrate (Ambien) 5 mg PRN QHS PRN PO INSOMNIA 03/15/20 20:45 03/15/20 20:48 LAB Lab: Reviewed from admission IMAGING Imaging: PATIENT: DEBBY SIMONS MACCOUNT: [id number] : 1975 LOCATION: ER AGE: 44 SEX: F EXAM STATUS: REG ER ORD. PHYSICIAN: BRENNEN CLARK APRN REASON: pui, elevated D-dimer, bilat pneumonia PROCEDURE: CT ANGIOGRAPHY CHEST CTA scan of the Chest with Contrast (Pulmonary Embolism protocol) 03/14/2020 Clinical History: Elevated d-dimer. Technique: After the intravenous administration of 100 cc of Omnipaque 350, contiguous, 0.625 mm axial sections were obtained through the chest. 2 mm axial and 3D MIP coronal and sagittal reconstructed images were obtained. One or more of the following individualized dose reduction techniques were utilized for this study: 1. Automated exposure control. 2. Adjustment of the mA and/or kV according to patient size. 3. Use of iterative reconstruction technique. Findings: Comparison is made to the patient's chest radiograph performed earlier today. No filling defect is seen within the major branches of either pulmonary artery. There is no CT evidence of pulmonary embolism. The heart and thoracic aorta are within normal limits. Patchy predominantly peripheral perihilar infiltrates are seen throughout both lungs. A 8mm calcified granuloma is seen involving the left lower lobe. No pneumothorax or pleural effusion is seen. Impression: 1. There is no CT evidence of pulmonary embolism. 2. Bilateral perihilar infiltrates. Electronically signed by: Shayne Blanton MD (03/14/2020 1:56 PM) [id number] DICTATED and SIGNED BY: SHAYNE BLANTON MD DATE: 03/14/20 1356 ASSESSMENT & PLAN A&P Plan as noted above This note was created using [email or web address] and may have omissions and/or errors due to the nature of real-time voice vp public relations. Justicifation of Admission Dx: Justifications for Admission: Justification of Admission Dx: Yes Respiratory Failure: Severe Resp Distress KATY MONTEMAYOR MD Mar 15, 2020 21:34
[2020-03-15 23:51] VITALS: BP 111/67
[2020-03-16 03:57] VITALS: BP 122/76
[2020-03-16] MEDS: PIPERACILLIN/TAZOBACTAM 3.375 GM in IV NORMAL SALINE 50ML 50 ML IV SCH ×4 (05:31→23:24)
[2020-03-16 05:39] LABS: ALBUMIN 2.6 g/dL (3.4-5.0); ALBUMIN/GLOBULIN RATIO 0.5 (1.0-1.7); CALCIUM 8.8 mg/dL (8.5-10.1); CREATININE 0.8 mg/dL (0.6-1.0); GFR 77.9; POTASSIUM 3.9 mmol/L (3.5-5.1); TOTAL BILIRUBIN 0.2 mg/dL (0.2-1.0)
[2020-03-16 05:47] LABS: BASO % 0 % (0-3); EOS % 0 % (0-3); HEMATOCRIT 37.6 % (36.0-47.0); HEMOGLOBIN 12.9 g/dL (12.0-15.5); LYMPH # 0.9 x10^3/uL (1.0-4.8); LYMPH % 11 % (24-48); MEAN CORPUSCULAR HEMOGLOBIN 32 pg (25-35); MEAN CORPUSCULAR HGB CONC 35 g/dL (31-37); MEAN CORPUSCULAR VOLUME 92 fL (79-100); MONO # 0.3 x10^3/uL (0.0-1.1); MONO % 4 % (0-9); NEUT # 6.5 x10^3/uL (1.8-7.7); NEUT % 85 % (31-73); PLATELET COUNT 262 x10^3/uL (140-400); RED BLOOD COUNT 4.08 x10^6/uL (3.50-5.40); RED CELL DISTRIBUTION WIDTH 12.7 % (11.5-14.5); WHITE BLOOD COUNT 7.6 x10^3/uL (4.0-11.0)
[2020-03-16 07:00] VITALS: BP 110/65
[2020-03-16] MEDS: MULTIVITAMIN with MINERAL TABLET. PO SCH (10:23)
[2020-03-16] MEDS: methylPREDNISolone SOD SUCC PF 40 MG/ML VIAL. IV SCH ×2 (10:23→20:43)
[2020-03-16] MEDS: LACTOBACILLUS RHAMNOSUS GG 1 CAPSULE. PO SCH ×2 (10:23→20:43)
[2020-03-16] MEDS: ACETAMINOPHEN 325 MG TABLET. PO PRN (10:32)
[2020-03-16 10:58] LABS: % ATYL 1 % (0-0); % BANDS 9 % (0-9); % LYMPHS 8 % (24-48); % SEGS 82 % (35-66); PLT ESTIMATE ADEQUATE (ADEQUATE)
[2020-03-16 11:00] VITALS: BP 100/59
--- NOTE | 2020-03-16 12:55 | PDOC ---
Infectious Disease Note Subjective Subjective Feeling about the same today Tires easily aches better + loose stools Denies worsening cough/SOA No fevers 3L ROS ROS as mentioned above Vital Sign Vital Signs Vital Signs Date Time Temp Pulse Resp B/P (MAP) Pulse Ox O2 Delivery O2 Flow Rate FiO2 03/16/20 11:00 97.7 63 18 100/59 (73) 90 Nasal Cannula 3.0 97.7 Physical Exam PHYSICAL EXAM GENERAL: Propped up in bed, alert and eating HEENT: Oral cavity, pharynx was clear. NECK: Supple. Good range of motion. LUNGS: CTAB, nonlabored. HEART: S1, S2. ABDOMEN: Obese, soft, nontender, no guarding or rebound. EXTREMITIES: No clubbing, cyanosis or gross edema. SKIN: Warm to touch without signs of rash. NEUROLOGIC: Alert, nonfocal. PIV Labs Lab Laboratory Tests Test 03/16/20 04:45 White Blood Count 7.6 x10^3/uL (4.0-11.0) Red Blood Count 4.08 x10^6/uL (3.50-5.40) Hemoglobin 12.9 g/dL (12.0-15.5) Hematocrit 37.6 % (36.0-47.0) Mean Corpuscular Volume 92 fL (79-100) Mean Corpuscular Hemoglobin 32 pg (25-35) Mean Corpuscular Hemoglobin Concent 35 g/dL (31-37) Red Cell Distribution Width 12.7 % (11.5-14.5) Platelet Count 262 x10^3/uL (140-400) Neutrophils (%) (Auto) 85 % (31-73) Lymphocytes (%) (Auto) 11 % (24-48) Monocytes (%) (Auto) 4 % (0-9) Eosinophils (%) (Auto) 0 % (0-3) Basophils (%) (Auto) 0 % (0-3) Neutrophils # (Auto) 6.5 x10^3/uL (1.8-7.7) Lymphocytes # (Auto) 0.9 x10^3/uL (1.0-4.8) Monocytes # (Auto) 0.3 x10^3/uL (0.0-1.1) Eosinophils # (Auto) 0.0 x10^3/uL (0.0-0.7) Basophils # (Auto) 0.0 x10^3/uL (0.0-0.2) Segmented Neutrophils % 82 % (35-66) Band Neutrophils % 9 % (0-9) Lymphocytes % 8 % (24-48) Atypical Lymphocytes % (Manual) 1 % (0-0) Platelet Estimate Adequate (ADEQUATE) Sodium Level 139 mmol/L (136-145) Potassium Level 3.9 mmol/L (3.5-5.1) Chloride Level 102 mmol/L (98-107) Carbon Dioxide Level 26 mmol/L (21-32) Anion Gap 11 (6-14) Blood Urea Nitrogen 13 mg/dL (7-20) Creatinine 0.8 mg/dL (0.6-1.0) Estimated GFR (Cockcroft-Gault) 77.9 BUN/Creatinine Ratio 16 (6-20) Glucose Level 169 mg/dL (70-99) Calcium Level 8.8 mg/dL (8.5-10.1) Total Bilirubin 0.2 mg/dL (0.2-1.0) Aspartate Amino Transf (AST/SGOT) 42 U/L (15-37) Alanine Aminotransferase (ALT/SGPT) 51 U/L (14-59) Alkaline Phosphatase 57 U/L (46-116) Total Protein 8.0 g/dL (6.4-8.2) Albumin 2.6 g/dL (3.4-5.0) Albumin/Globulin Ratio 0.5 (1.0-1.7) Objective Assessment COVID-19 viral infection, 7/10 Cough. Bilateral infiltrates. Acute hypoxic respiratory failure, on 3L Obesity. Plan Plan of Care Azithromycin and Zosyn Probiotics Steroids per pulm Airborne isolation for COVID Feeling better less SOA and fever May need Remdesivir if worsens - defer to Pulm Attending Co-Sign Attending Co-Sign The patient was seen and interviewed as well as examined at the bedside. The chart was reviewed. The case was discussed. Agree with the plan of care. HERI PATINO APRN Mar 16, 2020 12:55 ANJEL ACOSTA MD Mar 16, 2020 15:33
--- NOTE | 2020-03-16 13:09 | PDOC ---
PULMONARY PROGRESS NOTES Subjective on , sob better, has occ cough Vitals Vital Signs Date Time Temp Pulse Resp B/P (MAP) Pulse Ox O2 Delivery O2 Flow Rate FiO2 03/16/20 11:00 97.7 63 18 100/59 (73) 90 Nasal Cannula 3.0 97.7 Comments on no distress nc at no paradoxical abd motion no audible wheezing no edema no rash alert nsr on monitor General: Alert HEENT: Other (nc at ) Cardiovascular: S1, S2 Neuro Exam: Alert Skin: No Rashes Labs Laboratory Tests Test 03/16/20 04:45 White Blood Count 7.6 x10^3/uL (4.0-11.0) Red Blood Count 4.08 x10^6/uL (3.50-5.40) Hemoglobin 12.9 g/dL (12.0-15.5) Hematocrit 37.6 % (36.0-47.0) Mean Corpuscular Volume 92 fL (79-100) Mean Corpuscular Hemoglobin 32 pg (25-35) Mean Corpuscular Hemoglobin Concent 35 g/dL (31-37) Red Cell Distribution Width 12.7 % (11.5-14.5) Platelet Count 262 x10^3/uL (140-400) Neutrophils (%) (Auto) 85 % (31-73) Lymphocytes (%) (Auto) 11 % (24-48) Monocytes (%) (Auto) 4 % (0-9) Eosinophils (%) (Auto) 0 % (0-3) Basophils (%) (Auto) 0 % (0-3) Neutrophils # (Auto) 6.5 x10^3/uL (1.8-7.7) Lymphocytes # (Auto) 0.9 x10^3/uL (1.0-4.8) Monocytes # (Auto) 0.3 x10^3/uL (0.0-1.1) Eosinophils # (Auto) 0.0 x10^3/uL (0.0-0.7) Basophils # (Auto) 0.0 x10^3/uL (0.0-0.2) Segmented Neutrophils % 82 % (35-66) Band Neutrophils % 9 % (0-9) Lymphocytes % 8 % (24-48) Atypical Lymphocytes % (Manual) 1 % (0-0) Platelet Estimate Adequate (ADEQUATE) Sodium Level 139 mmol/L (136-145) Potassium Level 3.9 mmol/L (3.5-5.1) Chloride Level 102 mmol/L (98-107) Carbon Dioxide Level 26 mmol/L (21-32) Anion Gap 11 (6-14) Blood Urea Nitrogen 13 mg/dL (7-20) Creatinine 0.8 mg/dL (0.6-1.0) Estimated GFR (Cockcroft-Gault) 77.9 BUN/Creatinine Ratio 16 (6-20) Glucose Level 169 mg/dL (70-99) Calcium Level 8.8 mg/dL (8.5-10.1) Total Bilirubin 0.2 mg/dL (0.2-1.0) Aspartate Amino Transf (AST/SGOT) 42 U/L (15-37) Alanine Aminotransferase (ALT/SGPT) 51 U/L (14-59) Alkaline Phosphatase 57 U/L (46-116) Total Protein 8.0 g/dL (6.4-8.2) Albumin 2.6 g/dL (3.4-5.0) Albumin/Globulin Ratio 0.5 (1.0-1.7) Laboratory Tests Test 03/16/20 04:45 White Blood Count 7.6 x10^3/uL (4.0-11.0) Red Blood Count 4.08 x10^6/uL (3.50-5.40) Hemoglobin 12.9 g/dL (12.0-15.5) Hematocrit 37.6 % (36.0-47.0) Mean Corpuscular Volume 92 fL (79-100) Mean Corpuscular Hemoglobin 32 pg (25-35) Mean Corpuscular Hemoglobin Concent 35 g/dL (31-37) Red Cell Distribution Width 12.7 % (11.5-14.5) Platelet Count 262 x10^3/uL (140-400) Neutrophils (%) (Auto) 85 % (31-73) Lymphocytes (%) (Auto) 11 % (24-48) Monocytes (%) (Auto) 4 % (0-9) Eosinophils (%) (Auto) 0 % (0-3) Basophils (%) (Auto) 0 % (0-3) Neutrophils # (Auto) 6.5 x10^3/uL (1.8-7.7) Lymphocytes # (Auto) 0.9 x10^3/uL (1.0-4.8) Monocytes # (Auto) 0.3 x10^3/uL (0.0-1.1) Eosinophils # (Auto) 0.0 x10^3/uL (0.0-0.7) Basophils # (Auto) 0.0 x10^3/uL (0.0-0.2) Segmented Neutrophils % 82 % (35-66) Band Neutrophils % 9 % (0-9) Lymphocytes % 8 % (24-48) Atypical Lymphocytes % (Manual) 1 % (0-0) Platelet Estimate Adequate (ADEQUATE) Sodium Level 139 mmol/L (136-145) Potassium Level 3.9 mmol/L (3.5-5.1) Chloride Level 102 mmol/L (98-107) Carbon Dioxide Level 26 mmol/L (21-32) Anion Gap 11 (6-14) Blood Urea Nitrogen 13 mg/dL (7-20) Creatinine 0.8 mg/dL (0.6-1.0) Estimated GFR (Cockcroft-Gault) 77.9 BUN/Creatinine Ratio 16 (6-20) Glucose Level 169 mg/dL (70-99) Calcium Level 8.8 mg/dL (8.5-10.1) Total Bilirubin 0.2 mg/dL (0.2-1.0) Aspartate Amino Transf (AST/SGOT) 42 U/L (15-37) Alanine Aminotransferase (ALT/SGPT) 51 U/L (14-59) Alkaline Phosphatase 57 U/L (46-116) Total Protein 8.0 g/dL (6.4-8.2) Albumin 2.6 g/dL (3.4-5.0) Albumin/Globulin Ratio 0.5 (1.0-1.7) Medications Active Scripts Medications Dose Route/Sig Max Daily Dose Days Date Category Gabapentin 600 Mg Tablet 600 Mg PO TID 11/05/18 Rx Medrol (Methylprednisolone) 4 Mg Tab.ds.pk 1 Pkg PO UD 11/05/18 Rx Orphenadrine Citrate 100 Mg Tablet.er 1 Tab PO BID 11/05/18 Rx Diclofenac Potassium 50 Mg Tablet 1 Tab PO BID 11/05/18 Rx Labetalol Hcl 300 Mg Tablet 1 Tab PO BID 07/01/14 Rx Percocet 5-325 Mg Tablet (Oxycodone/Acetaminophen) 1 Each Tablet 1 Tab PO Q4HRS PRN 07/01/14 Rx Ibuprofen 800 Mg Tablet 800 Mg PO Q6H PRN 07/01/14 Rx Impression . IMPRESSION: 1. Acute respiratory failure secondary to pneumonia, COVID-19. 2. Abnormal chest x-ray. 3. Pneumonia. 4. Asthma. 5. COVID-19 positive Plan . PLAN AND RECOMMENDATIONS: 1. Titrate FiO2 to keep O2 saturation 92%. 2. Continue antibiotic. per ID 3. cont steroids. 4. Follow up cultures. 5. COVID-19 positive 6. Lovenox for DVT prophylaxis. discussed w LISETTE Monae MD Mar 16, 2020 13:09
[2020-03-16 15:00] VITALS: BP 111/60
--- NOTE | 2020-03-16 15:20 | PDOC ---
GENERAL General: Patient examined chart reviewed today is hospital day 3 for this patient with COVID-19 pneumonia. She is still quite dyspneic but stable on her current oxygen level. She is very anxious about her situation and reminds me about her 4 children at home with only the supervising oldest who is 20 years old overseeing everything. The youngest is 5 years old with autism after a difficult delivery. She is asking me for a letter today to help her be released from care home to come and take care of them. Other than her stress she feels like she is getting a little stronger. We appreciate subspecialty support. Total time today is 30 minutes with greater than 50% in counseling and coordination of care most of which in discussion with patient and nursing Problems: (1) Pneumonia due to COVID-19 virus VITAL SIGNS Vital Signs/I&O: Vital Signs Date Time Temp Pulse Resp B/P (MAP) Pulse Ox O2 Delivery O2 Flow Rate FiO2 03/16/20 11:00 97.7 63 18 100/59 (73) 90 Nasal Cannula 3.0 97.7 I & O 03/15/20 03/15/20 03/16/20 15:00 23:00 07:00 Intake Total 240 ml 340 ml Balance 240 ml 340 ml In general the patient is pleasant alert and oriented x3 no acute distress HEENT exam is unremarkable for acute abnormality Chest is clear to auscultation though diminished air entry throughout. She is quite dyspneic during the exam no wheezing or crackles are noted Heart S1-S2 normal regular rate and rhythm no murmurs or gallops are noted Abdomen soft nontender nondistended no masses organomegaly noted Extremity exam is unremarkable for acute abnormality ALLERGIES Allergies: Allergies Coded Allergies Type Severity Reaction Last Updated Verified No Known Drug Allergies 06/29/14 No MEDS Medications: Current Medications Medications (Trade) Dose Ordered Sig/Rachael Route PRN Reason Start Time Stop Time Status Last Admin Dose Admin Lactobacillus Rhamnosus (Culturelle) 1 cap BID PO 03/15/20 21:00 03/16/20 10:23 Zolpidem Tartrate (Ambien) 5 mg PRN QHS PRN PO INSOMNIA 03/15/20 20:45 03/15/20 20:48 LAB Lab: Laboratory Tests Test 03/16/20 04:45 White Blood Count 7.6 x10^3/uL (4.0-11.0) Red Blood Count 4.08 x10^6/uL (3.50-5.40) Hemoglobin 12.9 g/dL (12.0-15.5) Hematocrit 37.6 % (36.0-47.0) Mean Corpuscular Volume 92 fL (79-100) Mean Corpuscular Hemoglobin 32 pg (25-35) Mean Corpuscular Hemoglobin Concent 35 g/dL (31-37) Red Cell Distribution Width 12.7 % (11.5-14.5) Platelet Count 262 x10^3/uL (140-400) Neutrophils (%) (Auto) 85 % (31-73) H Lymphocytes (%) (Auto) 11 % (24-48) L Monocytes (%) (Auto) 4 % (0-9) Eosinophils (%) (Auto) 0 % (0-3) Basophils (%) (Auto) 0 % (0-3) Neutrophils # (Auto) 6.5 x10^3/uL (1.8-7.7) Lymphocytes # (Auto) 0.9 x10^3/uL (1.0-4.8) L Monocytes # (Auto) 0.3 x10^3/uL (0.0-1.1) Eosinophils # (Auto) 0.0 x10^3/uL (0.0-0.7) Basophils # (Auto) 0.0 x10^3/uL (0.0-0.2) Segmented Neutrophils % 82 % (35-66) H Band Neutrophils % 9 % (0-9) Lymphocytes % 8 % (24-48) L Atypical Lymphocytes % (Manual) 1 % (0-0) H Platelet Estimate Adequate (ADEQUATE) Sodium Level 139 mmol/L (136-145) Potassium Level 3.9 mmol/L (3.5-5.1) Chloride Level 102 mmol/L (98-107) Carbon Dioxide Level 26 mmol/L (21-32) Anion Gap 11 (6-14) Blood Urea Nitrogen 13 mg/dL (7-20) Creatinine 0.8 mg/dL (0.6-1.0) Estimated GFR (Cockcroft-Gault) 77.9 BUN/Creatinine Ratio 16 (6-20) Glucose Level 169 mg/dL (70-99) H Calcium Level 8.8 mg/dL (8.5-10.1) Total Bilirubin 0.2 mg/dL (0.2-1.0) Aspartate Amino Transferase (AST) 42 U/L (15-37) H Alanine Aminotransferase (ALT) 51 U/L (14-59) Alkaline Phosphatase 57 U/L (46-116) Total Protein 8.0 g/dL (6.4-8.2) Albumin 2.6 g/dL (3.4-5.0) L Albumin/Globulin Ratio 0.5 (1.0-1.7) L Laboratory Tests 03/16/20 04:45 Laboratory Tests 03/16/20 04:45 ASSESSMENT & PLAN A&P Plan as noted above This note was created using [employer] and may have omissions and/or errors due to the nature of real-time voice charter representative. Justicifation of Admission Dx: Justifications for Admission: Justification of Admission Dx: Yes Respiratory Failure: Severe Resp Distress KATY MONTEMAYOR MD Mar 16, 2020 15:19
[2020-03-16] MEDS: ENOXAPARIN 40 MG/0.4 ML SYRINGE. SQ SCH (15:43)
[2020-03-16] MEDS: AZITHROMYCIN 500 MG in IV NORMAL SALINE 250ML 250 ML IV SCH (15:44)
[2020-03-16 19:00] VITALS: BP 103/70
[2020-03-16] MEDS: ZOLPIDEM 5 MG TABLET. PO PRN (20:43)
[2020-03-16 23:00] VITALS: BP 108/61
[2020-03-17 03:00] VITALS: BP 117/64
[2020-03-17 05:15] LABS: BASO % 0 % (0-3); EOS % 0 % (0-3); HEMATOCRIT 36.9 % (36.0-47.0); HEMOGLOBIN 13.1 g/dL (12.0-15.5); LYMPH % 11 % (24-48); MEAN CORPUSCULAR HEMOGLOBIN 33 pg (25-35); MEAN CORPUSCULAR HGB CONC 36 g/dL (31-37); MEAN CORPUSCULAR VOLUME 92 fL (79-100); MONO # 0.3 x10^3/uL (0.0-1.1); MONO % 3 % (0-9); NEUT % 86 % (31-73); PLATELET COUNT 311 x10^3/uL (140-400); RED BLOOD COUNT 4.02 x10^6/uL (3.50-5.40); RED CELL DISTRIBUTION WIDTH 12.3 % (11.5-14.5); WHITE BLOOD COUNT 9.3 x10^3/uL (4.0-11.0)
[2020-03-17] MEDS: PIPERACILLIN/TAZOBACTAM 3.375 GM in IV NORMAL SALINE 50ML 50 ML IV SCH (05:51)
[2020-03-17 05:55] LABS: ALBUMIN 2.5 g/dL (3.4-5.0); ALBUMIN/GLOBULIN RATIO 0.5 (1.0-1.7); CALCIUM 8.7 mg/dL (8.5-10.1); CREATININE 0.8 mg/dL (0.6-1.0); GFR 77.9; POTASSIUM 3.7 mmol/L (3.5-5.1); TOTAL BILIRUBIN 0.3 mg/dL (0.2-1.0); TOTAL PROTEIN 7.8 g/dL (6.4-8.2)
[2020-03-17 07:00] VITALS: BP 131/74
--- NOTE | 2020-03-17 08:36 | PDOC ---
PULMONARY PROGRESS NOTES Subjective Patient still short of air cannot breathe Vitals Vital Signs Date Time Temp Pulse Resp B/P (MAP) Pulse Ox O2 Delivery O2 Flow Rate FiO2 03/17/20 07:00 98.1 73 18 131/74 (93) 92 Nasal Cannula 2.0 98.1 Comments On visual examination patient short of air no paradoxical breathing no increasing edema, patient seen doing the COVID-19 pending General: Alert HEENT: Other (nc at ) Cardiovascular: S2 Neuro Exam: Alert Skin: No Rashes Labs Laboratory Tests Test 03/16/20 04:45 03/17/20 04:42 White Blood Count 7.6 x10^3/uL (4.0-11.0) 9.3 x10^3/uL (4.0-11.0) Red Blood Count 4.08 x10^6/uL (3.50-5.40) 4.02 x10^6/uL (3.50-5.40) Hemoglobin 12.9 g/dL (12.0-15.5) 13.1 g/dL (12.0-15.5) Hematocrit 37.6 % (36.0-47.0) 36.9 % (36.0-47.0) Mean Corpuscular Volume 92 fL (79-100) 92 fL (79-100) Mean Corpuscular Hemoglobin 32 pg (25-35) 33 pg (25-35) Mean Corpuscular Hemoglobin Concent 35 g/dL (31-37) 36 g/dL (31-37) Red Cell Distribution Width 12.7 % (11.5-14.5) 12.3 % (11.5-14.5) Platelet Count 262 x10^3/uL (140-400) 311 x10^3/uL (140-400) Neutrophils (%) (Auto) 85 % (31-73) 86 % (31-73) Lymphocytes (%) (Auto) 11 % (24-48) 11 % (24-48) Monocytes (%) (Auto) 4 % (0-9) 3 % (0-9) Eosinophils (%) (Auto) 0 % (0-3) 0 % (0-3) Basophils (%) (Auto) 0 % (0-3) 0 % (0-3) Neutrophils # (Auto) 6.5 x10^3/uL (1.8-7.7) 8.0 x10^3/uL (1.8-7.7) Lymphocytes # (Auto) 0.9 x10^3/uL (1.0-4.8) 1.0 x10^3/uL (1.0-4.8) Monocytes # (Auto) 0.3 x10^3/uL (0.0-1.1) 0.3 x10^3/uL (0.0-1.1) Eosinophils # (Auto) 0.0 x10^3/uL (0.0-0.7) 0.0 x10^3/uL (0.0-0.7) Basophils # (Auto) 0.0 x10^3/uL (0.0-0.2) 0.0 x10^3/uL (0.0-0.2) Segmented Neutrophils % 82 % (35-66) Band Neutrophils % 9 % (0-9) Lymphocytes % 8 % (24-48) Atypical Lymphocytes % (Manual) 1 % (0-0) Platelet Estimate Adequate (ADEQUATE) Sodium Level 139 mmol/L (136-145) 139 mmol/L (136-145) Potassium Level 3.9 mmol/L (3.5-5.1) 3.7 mmol/L (3.5-5.1) Chloride Level 102 mmol/L (98-107) 102 mmol/L (98-107) Carbon Dioxide Level 26 mmol/L (21-32) 27 mmol/L (21-32) Anion Gap 11 (6-14) 10 (6-14) Blood Urea Nitrogen 13 mg/dL (7-20) 12 mg/dL (7-20) Creatinine 0.8 mg/dL (0.6-1.0) 0.8 mg/dL (0.6-1.0) Estimated GFR (Cockcroft-Gault) 77.9 77.9 BUN/Creatinine Ratio 16 (6-20) 15 (6-20) Glucose Level 169 mg/dL (70-99) 157 mg/dL (70-99) Calcium Level 8.8 mg/dL (8.5-10.1) 8.7 mg/dL (8.5-10.1) Total Bilirubin 0.2 mg/dL (0.2-1.0) 0.3 mg/dL (0.2-1.0) Aspartate Amino Transf (AST/SGOT) 42 U/L (15-37) 63 U/L (15-37) Alanine Aminotransferase (ALT/SGPT) 51 U/L (14-59) 89 U/L (14-59) Alkaline Phosphatase 57 U/L (46-116) 71 U/L (46-116) Total Protein 8.0 g/dL (6.4-8.2) 7.8 g/dL (6.4-8.2) Albumin 2.6 g/dL (3.4-5.0) 2.5 g/dL (3.4-5.0) Albumin/Globulin Ratio 0.5 (1.0-1.7) 0.5 (1.0-1.7) Laboratory Tests Test 03/17/20 04:42 White Blood Count 9.3 x10^3/uL (4.0-11.0) Red Blood Count 4.02 x10^6/uL (3.50-5.40) Hemoglobin 13.1 g/dL (12.0-15.5) Hematocrit 36.9 % (36.0-47.0) Mean Corpuscular Volume 92 fL (79-100) Mean Corpuscular Hemoglobin 33 pg (25-35) Mean Corpuscular Hemoglobin Concent 36 g/dL (31-37) Red Cell Distribution Width 12.3 % (11.5-14.5) Platelet Count 311 x10^3/uL (140-400) Neutrophils (%) (Auto) 86 % (31-73) Lymphocytes (%) (Auto) 11 % (24-48) Monocytes (%) (Auto) 3 % (0-9) Eosinophils (%) (Auto) 0 % (0-3) Basophils (%) (Auto) 0 % (0-3) Neutrophils # (Auto) 8.0 x10^3/uL (1.8-7.7) Lymphocytes # (Auto) 1.0 x10^3/uL (1.0-4.8) Monocytes # (Auto) 0.3 x10^3/uL (0.0-1.1) Eosinophils # (Auto) 0.0 x10^3/uL (0.0-0.7) Basophils # (Auto) 0.0 x10^3/uL (0.0-0.2) Sodium Level 139 mmol/L (136-145) Potassium Level 3.7 mmol/L (3.5-5.1) Chloride Level 102 mmol/L (98-107) Carbon Dioxide Level 27 mmol/L (21-32) Anion Gap 10 (6-14) Blood Urea Nitrogen 12 mg/dL (7-20) Creatinine 0.8 mg/dL (0.6-1.0) Estimated GFR (Cockcroft-Gault) 77.9 BUN/Creatinine Ratio 15 (6-20) Glucose Level 157 mg/dL (70-99) Calcium Level 8.7 mg/dL (8.5-10.1) Total Bilirubin 0.3 mg/dL (0.2-1.0) Aspartate Amino Transf (AST/SGOT) 63 U/L (15-37) Alanine Aminotransferase (ALT/SGPT) 89 U/L (14-59) Alkaline Phosphatase 71 U/L (46-116) Total Protein 7.8 g/dL (6.4-8.2) Albumin 2.5 g/dL (3.4-5.0) Albumin/Globulin Ratio 0.5 (1.0-1.7) Medications Active Scripts Medications Dose Route/Sig Max Daily Dose Days Date Category Gabapentin 600 Mg Tablet 600 Mg PO TID 11/05/18 Rx Medrol (Methylprednisolone) 4 Mg Tab.ds.pk 1 Pkg PO UD 11/05/18 Rx Orphenadrine Citrate 100 Mg Tablet.er 1 Tab PO BID 11/05/18 Rx Diclofenac Potassium 50 Mg Tablet 1 Tab PO BID 11/05/18 Rx Labetalol Hcl 300 Mg Tablet 1 Tab PO BID 07/01/14 Rx Percocet 5-325 Mg Tablet (Oxycodone/Acetaminophen) 1 Each Tablet 1 Tab PO Q4HRS PRN 07/01/14 Rx Ibuprofen 800 Mg Tablet 800 Mg PO Q6H PRN 07/01/14 Rx Impression . IMPRESSION: 1. Acute respiratory failure secondary to pneumonia, COVID-19. 2. Abnormal chest x-ray. 3. Pneumonia. 4. Asthma. 5. COVID-19 viral pneumonia, early ARDS. Plan . Continue steroids Antibiotics per ID Initiate Remdisivir DVT GI prophylaxis check d-dimer C-reactive protein Case discussed with pharmacy, and RN. REINA ENAMORADO MD Mar 17, 2020 08:36
[2020-03-17] MEDS: MULTIVITAMIN with MINERAL TABLET. PO SCH (10:00)
[2020-03-17] MEDS: methylPREDNISolone SOD SUCC PF 40 MG/ML VIAL. IV SCH ×2 (10:00→20:36)
[2020-03-17] MEDS: LACTOBACILLUS RHAMNOSUS GG 1 CAPSULE. PO SCH ×2 (10:00→20:36)
[2020-03-17 10:44] VITALS: BP 111/57
--- NOTE | 2020-03-17 12:00 | PDOC ---
Infectious Disease Note Subjective Subjective Feeling about the same today Tires easily aches better + loose stools Denies worsening cough/SOA No fevers 3L Vital Sign Vital Signs Vital Signs Date Time Temp Pulse Resp B/P (MAP) Pulse Ox O2 Delivery O2 Flow Rate FiO2 03/17/20 10:44 97.9 69 18 111/57 (75) 92 Nasal Cannula 2.0 97.9 Physical Exam PHYSICAL EXAM GENERAL: Propped up in bed, alert and eating HEENT: Oral cavity, pharynx was clear. NECK: Supple. Good range of motion. LUNGS: CTAB, nonlabored. HEART: S1, S2. ABDOMEN: Obese, soft, nontender, no guarding or rebound. EXTREMITIES: No clubbing, cyanosis or gross edema. SKIN: Warm to touch without signs of rash. NEUROLOGIC: Alert, nonfocal. PIV Labs Lab Laboratory Tests Test 03/17/20 04:42 White Blood Count 9.3 x10^3/uL (4.0-11.0) Red Blood Count 4.02 x10^6/uL (3.50-5.40) Hemoglobin 13.1 g/dL (12.0-15.5) Hematocrit 36.9 % (36.0-47.0) Mean Corpuscular Volume 92 fL (79-100) Mean Corpuscular Hemoglobin 33 pg (25-35) Mean Corpuscular Hemoglobin Concent 36 g/dL (31-37) Red Cell Distribution Width 12.3 % (11.5-14.5) Platelet Count 311 x10^3/uL (140-400) Neutrophils (%) (Auto) 86 % (31-73) Lymphocytes (%) (Auto) 11 % (24-48) Monocytes (%) (Auto) 3 % (0-9) Eosinophils (%) (Auto) 0 % (0-3) Basophils (%) (Auto) 0 % (0-3) Neutrophils # (Auto) 8.0 x10^3/uL (1.8-7.7) Lymphocytes # (Auto) 1.0 x10^3/uL (1.0-4.8) Monocytes # (Auto) 0.3 x10^3/uL (0.0-1.1) Eosinophils # (Auto) 0.0 x10^3/uL (0.0-0.7) Basophils # (Auto) 0.0 x10^3/uL (0.0-0.2) Sodium Level 139 mmol/L (136-145) Potassium Level 3.7 mmol/L (3.5-5.1) Chloride Level 102 mmol/L (98-107) Carbon Dioxide Level 27 mmol/L (21-32) Anion Gap 10 (6-14) Blood Urea Nitrogen 12 mg/dL (7-20) Creatinine 0.8 mg/dL (0.6-1.0) Estimated GFR (Cockcroft-Gault) 77.9 BUN/Creatinine Ratio 15 (6-20) Glucose Level 157 mg/dL (70-99) Calcium Level 8.7 mg/dL (8.5-10.1) Total Bilirubin 0.3 mg/dL (0.2-1.0) Aspartate Amino Transf (AST/SGOT) 63 U/L (15-37) Alanine Aminotransferase (ALT/SGPT) 89 U/L (14-59) Alkaline Phosphatase 71 U/L (46-116) Total Protein 7.8 g/dL (6.4-8.2) Albumin 2.5 g/dL (3.4-5.0) Albumin/Globulin Ratio 0.5 (1.0-1.7) Objective Assessment COVID-19 viral infection, 7/10 Cough. Bilateral infiltrates. Acute hypoxic respiratory failure, on 3L Obesity. Plan Plan of Care Azithromycin and Zosyn Probiotics Steroids per pulm Airborne isolation for COVID Feeling better less SOA and fever May need Remdesivir if worsens - defer to Pulm RAVI REINOSO MD Mar 17, 2020 12:00
[2020-03-17 15:00] VITALS: BP 109/61
[2020-03-17] MEDS: ENOXAPARIN 40 MG/0.4 ML SYRINGE. SQ SCH (15:29)
[2020-03-17] MEDS: ACETAMINOPHEN 325 MG TABLET. PO PRN (15:29)
[2020-03-17] MEDS: AZITHROMYCIN 500 MG in IV NORMAL SALINE 250ML 250 ML IV SCH (15:31)
--- NOTE | 2020-03-17 15:33 | PDOC ---
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 CHF (congestive heart failure) Eclampsia, with delivery, with current complication PIH ( induced hypertension), antepartum Supervision of normal IUP (intrauterine ) in multigravida Radicular pain in left arm Shortness of breath Person under investigation for COVID-19 History of Present Illness History of Present Illness 44 yo F seen and examined today. patient has been tested positive for covid. She is saturating 92% on 3 L NC. She is currently on broad spectrum Abx and is stable cont current Abx Appreciate ID recs Continu solumedrol Airborne isolation for COVID Vitals/I&O Vitals/I&O: Vital Signs Date Time Temp Pulse Resp B/P (MAP) Pulse Ox O2 Delivery O2 Flow Rate FiO2 03/17/20 15:00 97.9 68 18 109/61 (77) 93 Nasal Cannula 2.0 97.9 I & O 03/16/20 03/16/20 03/17/20 15:00 23:00 07:00 Intake Total 500 ml 600 ml 580 ml Balance 500 ml 600 ml 580 ml Physical Exam Physical Exam: GENERAL: Propped up in bed, alert and eating HEENT: Oral cavity, pharynx was clear. NECK: Supple. Good range of motion. LUNGS: CTAB, nonlabored. HEART: S1, S2. ABDOMEN: Obese, soft, nontender, no guarding or rebound. EXTREMITIES: No clubbing, cyanosis or gross edema. SKIN: Warm to touch without signs of rash. NEUROLOGIC: Alert, nonfocal. PIV Labs Labs: Laboratory Tests Test 03/17/20 04:42 White Blood Count 9.3 x10^3/uL (4.0-11.0) Red Blood Count 4.02 x10^6/uL (3.50-5.40) Hemoglobin 13.1 g/dL (12.0-15.5) Hematocrit 36.9 % (36.0-47.0) Mean Corpuscular Volume 92 fL (79-100) Mean Corpuscular Hemoglobin 33 pg (25-35) Mean Corpuscular Hemoglobin Concent 36 g/dL (31-37) Red Cell Distribution Width 12.3 % (11.5-14.5) Platelet Count 311 x10^3/uL (140-400) Neutrophils (%) (Auto) 86 % (31-73) Lymphocytes (%) (Auto) 11 % (24-48) Monocytes (%) (Auto) 3 % (0-9) Eosinophils (%) (Auto) 0 % (0-3) Basophils (%) (Auto) 0 % (0-3) Neutrophils # (Auto) 8.0 x10^3/uL (1.8-7.7) Lymphocytes # (Auto) 1.0 x10^3/uL (1.0-4.8) Monocytes # (Auto) 0.3 x10^3/uL (0.0-1.1) Eosinophils # (Auto) 0.0 x10^3/uL (0.0-0.7) Basophils # (Auto) 0.0 x10^3/uL (0.0-0.2) Sodium Level 139 mmol/L (136-145) Potassium Level 3.7 mmol/L (3.5-5.1) Chloride Level 102 mmol/L (98-107) Carbon Dioxide Level 27 mmol/L (21-32) Anion Gap 10 (6-14) Blood Urea Nitrogen 12 mg/dL (7-20) Creatinine 0.8 mg/dL (0.6-1.0) Estimated GFR (Cockcroft-Gault) 77.9 BUN/Creatinine Ratio 15 (6-20) Glucose Level 157 mg/dL (70-99) Calcium Level 8.7 mg/dL (8.5-10.1) Total Bilirubin 0.3 mg/dL (0.2-1.0) Aspartate Amino Transf (AST/SGOT) 63 U/L (15-37) Alanine Aminotransferase (ALT/SGPT) 89 U/L (14-59) Alkaline Phosphatase 71 U/L (46-116) Total Protein 7.8 g/dL (6.4-8.2) Albumin 2.5 g/dL (3.4-5.0) Albumin/Globulin Ratio 0.5 (1.0-1.7) Assessment and Plan Assessmemt and Plan Problems Medical Problems: (1) Person under investigation for COVID-19 Status: Acute (2) Shortness of breath Status: Acute All labs reviewed below Comment Review of Relevant I have reviewed the following items leonie (where applicable) has been applied. Justicifation of Admission Dx: Justifications for Admission: Justification of Admission Dx: Yes Respiratory Failure: Severe Resp Distress AUGUSTUS ROPER MD Mar 17, 2020 15:33
[2020-03-17] MEDS ORDERED: NON FORMULARY ITEM 1 EA in IV NORMAL SALINE 250ML 210 ML IV ONE (16:30)
--- NOTE | 2020-03-17 17:27 | NUR ---
SW following for discharge planning. Spoke with RN and reviewed chart. Pt from home. Pt is self pay and [facility] is following. Pt on 2l 02 and IV abx Azithromycin and Zosyn. SW to continue following.
[2020-03-17 17:55] LABS: D-DIMER 0.93 ug/mlFEU (0.00-0.50)
[2020-03-17 19:00] VITALS: BP 132/74
[2020-03-17] MEDS: ZOLPIDEM 5 MG TABLET. PO PRN (20:36)
[2020-03-17 23:10] VITALS: BP 126/71
[2020-03-18] VITALS (8 sets, daily range): BP systolic 110–147; BP diastolic 57–74
[2020-03-18 02:08] LABS: HEMOGLOBIN A1C 6.2 % (4.8-5.6)
[2020-03-18] MEDS: ENOXAPARIN 40 MG/0.4 ML SYRINGE. SQ SCH ×2 (08:28→21:48)
[2020-03-18] MEDS: LACTOBACILLUS RHAMNOSUS GG 1 CAPSULE. PO SCH ×2 (08:28→21:47)
[2020-03-18] MEDS: MULTIVITAMIN with MINERAL TABLET. PO SCH (08:28)
[2020-03-18] MEDS: NON FORMULARY ITEM 1 EA in IV NORMAL SALINE 250ML 230 ML IV SCH (08:29)
[2020-03-18] MEDS: methylPREDNISolone SOD SUCC PF 40 MG/ML VIAL. IV SCH ×2 (08:29→21:47)
--- NOTE | 2020-03-18 09:17 | PDOC ---
PULMONARY PROGRESS NOTES Subjective Patient slightly more short of air today Vitals Vital Signs Date Time Temp Pulse Resp B/P (MAP) Pulse Ox O2 Delivery O2 Flow Rate FiO2 03/18/20 08:00 96 Nasal Cannula 2.0 03/18/20 07:00 98.7 78 18 134/66 (88) 98.7 General: Alert HEENT: Other (nc at ) Lungs: Clear Cardiovascular: S2 Neuro Exam: Alert Extremities: No Edema Skin: Warm, No Rashes Labs Laboratory Tests Test 03/17/20 04:42 03/17/20 17:20 White Blood Count 9.3 x10^3/uL (4.0-11.0) Red Blood Count 4.02 x10^6/uL (3.50-5.40) Hemoglobin 13.1 g/dL (12.0-15.5) Hematocrit 36.9 % (36.0-47.0) Mean Corpuscular Volume 92 fL (79-100) Mean Corpuscular Hemoglobin 33 pg (25-35) Mean Corpuscular Hemoglobin Concent 36 g/dL (31-37) Red Cell Distribution Width 12.3 % (11.5-14.5) Platelet Count 311 x10^3/uL (140-400) Neutrophils (%) (Auto) 86 % (31-73) Lymphocytes (%) (Auto) 11 % (24-48) Monocytes (%) (Auto) 3 % (0-9) Eosinophils (%) (Auto) 0 % (0-3) Basophils (%) (Auto) 0 % (0-3) Neutrophils # (Auto) 8.0 x10^3/uL (1.8-7.7) Lymphocytes # (Auto) 1.0 x10^3/uL (1.0-4.8) Monocytes # (Auto) 0.3 x10^3/uL (0.0-1.1) Eosinophils # (Auto) 0.0 x10^3/uL (0.0-0.7) Basophils # (Auto) 0.0 x10^3/uL (0.0-0.2) Sodium Level 139 mmol/L (136-145) Potassium Level 3.7 mmol/L (3.5-5.1) Chloride Level 102 mmol/L (98-107) Carbon Dioxide Level 27 mmol/L (21-32) Anion Gap 10 (6-14) Blood Urea Nitrogen 12 mg/dL (7-20) Creatinine 0.8 mg/dL (0.6-1.0) Estimated GFR (Cockcroft-Gault) 77.9 BUN/Creatinine Ratio 15 (6-20) Glucose Level 157 mg/dL (70-99) Hemoglobin A1c 6.2 % (4.8-5.6) Calcium Level 8.7 mg/dL (8.5-10.1) Total Bilirubin 0.3 mg/dL (0.2-1.0) Aspartate Amino Transf (AST/SGOT) 63 U/L (15-37) Alanine Aminotransferase (ALT/SGPT) 89 U/L (14-59) Alkaline Phosphatase 71 U/L (46-116) C-Reactive Protein, Quantitative 37.4 mg/L (0-3.3) Total Protein 7.8 g/dL (6.4-8.2) Albumin 2.5 g/dL (3.4-5.0) Albumin/Globulin Ratio 0.5 (1.0-1.7) Fibrinogen 656 mg/dL (200-440) D-Dimer (Mallorie) 0.93 ug/mlFEU (0.00-0.50) Laboratory Tests Test 03/17/20 17:20 Fibrinogen 656 mg/dL (200-440) D-Dimer (Mallorie) 0.93 ug/mlFEU (0.00-0.50) Medications Active Scripts Medications Dose Route/Sig Max Daily Dose Days Date Category Gabapentin 600 Mg Tablet 600 Mg PO TID 11/05/18 Rx Medrol (Methylprednisolone) 4 Mg Tab.ds.pk 1 Pkg PO UD 11/05/18 Rx Orphenadrine Citrate 100 Mg Tablet.er 1 Tab PO BID 11/05/18 Rx Diclofenac Potassium 50 Mg Tablet 1 Tab PO BID 11/05/18 Rx Labetalol Hcl 300 Mg Tablet 1 Tab PO BID 07/01/14 Rx Percocet 5-325 Mg Tablet (Oxycodone/Acetaminophen) 1 Each Tablet 1 Tab PO Q4HRS PRN 07/01/14 Rx Ibuprofen 800 Mg Tablet 800 Mg PO Q6H PRN 07/01/14 Rx Impression . IMPRESSION: 1. Acute respiratory failure secondary to pneumonia, COVID-19. 2. Abnormal chest x-ray. 3. Pneumonia. 4. Asthma. 5. COVID-19 viral pneumonia, early ARDS. Plan . Reassured patient that she will get better Continue steroids Antibiotics per ID Initiate Remdisivir, 03/17 D-dimer and fibrinogen noted Case discussed with pharmacy, and RN. Anticoagulation with REINA Morse MD Mar 18, 2020 09:17
--- NOTE | 2020-03-18 10:40 | PDOC ---
Infectious Disease Note Subjective Subjective Feeling okay breathing is okay not bad cannot say much better ROS ROS No nausea vomiting diarrhea chest pain shortness of breath Vital Sign Vital Signs Vital Signs Date Time Temp Pulse Resp B/P (MAP) Pulse Ox O2 Delivery O2 Flow Rate FiO2 03/18/20 08:00 96 Nasal Cannula 2.0 03/18/20 07:00 98.7 78 18 134/66 (88) 98.7 Physical Exam PHYSICAL EXAM GENERAL: Propped up in bed, alert and eating HEENT: Oral cavity, pharynx was clear. NECK: Supple. Good range of motion. LUNGS: CTAB, nonlabored. HEART: S1, S2. ABDOMEN: Obese, soft, nontender, no guarding or rebound. EXTREMITIES: No clubbing, cyanosis or gross edema. SKIN: Warm to touch without signs of rash. NEUROLOGIC: Alert, nonfocal. PIV Labs Lab Laboratory Tests Test 03/17/20 17:20 Fibrinogen 656 mg/dL (200-440) D-Dimer (Mallorie) 0.93 ug/mlFEU (0.00-0.50) Objective Assessment COVID-19 viral infection, 7/10 Cough. Bilateral infiltrates. Acute hypoxic respiratory failure, on 3L Obesity. Plan Plan of Care Probiotics Steroids per pulm Airborne isolation for COVID Feeling better less SOA and fever May need Remdesivir if worsens - RAVI REINOSO MD Mar 18, 2020 10:40
[2020-03-18] MEDS: AZITHROMYCIN 500 MG in IV NORMAL SALINE 250ML 250 ML IV SCH (14:10)
--- NOTE | 2020-03-18 14:34 | PDOC ---
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 CHF (congestive heart failure) Eclampsia, with delivery, with current complication PIH ( induced hypertension), antepartum Supervision of normal IUP (intrauterine ) in multigravida Radicular pain in left arm Shortness of breath Person under investigation for COVID-19 History of Present Illness History of Present Illness 44 yo F seen and examined today. patient has been tested positive for covid. She is saturating 93% on 6 L NC. Patient does complain of some hemoptysis. She does not have difficulty breathing but her O2 requirements have increased Vitals/I&O Vitals/I&O: Vital Signs Date Time Temp Pulse Resp B/P (MAP) Pulse Ox O2 Delivery O2 Flow Rate FiO2 03/18/20 11:27 98.8 78 16 130/66 (87) 93 Nasal Cannula 7.0 98.8 I & O 03/17/20 03/17/20 03/18/20 15:00 23:00 07:00 Intake Total 600 ml 800 ml 360 ml Balance 600 ml 800 ml 360 ml Physical Exam Physical Exam: GENERAL: Patient is alert and awake. NAD HEENT: Moist mucous membranes. No scleral icterus or obvious cervical lymphadenopathy CV: RRR. No murmurs rubs or gallops. Unable to appreciate S3 or S4 PULM: Bilaterally clear to auscultation. Chest expanding equally bilaterally without use of accessory muscles. ABD: Soft and nondistended on visualization and palpation. Normoactive bowel sounds heard. EXTREMITIES: No pedal edema seen. No warmth or tenderness upon touch. NEURO: Full ROM in all extremities. normal strength on upper extremities. Labs Labs: Laboratory Tests Test 03/17/20 17:20 Fibrinogen 656 mg/dL (200-440) D-Dimer (Mallorie) 0.93 ug/mlFEU (0.00-0.50) Review of Systems Review of Systems: CONSTITUIONAL: Denies weight loss, fever and chills. HEENT: Denies changes in vision and hearing. RESPIRATORY: Denies SOB and cough. CV: Denies palpitations and CP. GI: Denies abdominal pain, nausea, vomiting and diarrhea. : Denies dysuria and urinary frequency. MSK: Denies myalgia and joint pain. SKIN: Denies rash and pruritus. NEUROLOGICAL: Denies headache and syncope. PSYCHIATRIC: Denies recent changes in mood. Denies anxiety and depression. Assessment and Plan Assessmemt and Plan Assessment and plan Acute bilateral interstitial pneumonia due to COVID Grand multiparity CHF (congestive heart failure) Eclampsia, with delivery, with current complication PIH ( induced hypertension), antepartum Supervision of normal IUP (intrauterine ) in multigravida Radicular pain in left arm Shortness of breath Person under investigation for COVID-19 Will initiate Remdivisir Continue steroids Continue azithromycin per ID Recs Appreciate pulmonary and ID recs Comment Review of Relevant I have reviewed the following items leonie (where applicable) has been applied. Medications: Current Medications Medications (Trade) Dose Ordered Sig/Rachael Route PRN Reason Start Time Stop Time Status Last Admin Dose Admin Enoxaparin Sodium (Lovenox 40mg Syringe) 40 mg Q12HR SQ 03/18/20 09:00 03/18/20 08:28 Non-Formulary Medication 1 ea/ Sodium Chloride 210 ml @ 210 mls/hr 1X ONCE IV 03/17/20 16:30 03/17/20 17:29 DC 03/17/20 17:40 Non-Formulary Medication 1 ea/ Sodium Chloride 230 ml @ 460 mls/hr DAILY IV 03/18/20 09:00 03/21/20 09:29 03/18/20 08:29 Justicifation of Admission Dx: Justifications for Admission: Justification of Admission Dx: Yes Respiratory Failure: Severe Resp Distress AUGUSTUS ROPER MD Mar 18, 2020 14:34
--- NOTE | 2020-03-18 16:16 | NUR ---
SW following. Spoke with RN and CM. Coordinated care with Dr. Steele. Pt not ready for discharge. Pt COVID positive and on 7l 02. Discharge plan is home with family and self quarantine when stable. Spoke with pt's son Nir who stated that pt will be able to self quarantine. SW checked with Russ from [employer] and home 02 is $165 per month. Pt's son stated that they can afford $165 per month for pt to have 02 if needed at discharge. SW to continue following.
[2020-03-18] MEDS ORDERED: ENOXAPARIN 40 MG/0.4 ML SYRINGE. SQ SCH (21:00)
[2020-03-18] MEDS: ZOLPIDEM 5 MG TABLET. PO PRN (21:48)
[2020-03-18] MEDS: ACETAMINOPHEN 325 MG TABLET. PO PRN (21:48)
[2020-03-19 03:00] VITALS: BP 110/58
[2020-03-19 07:15] VITALS: BP 129/74
[2020-03-19] MEDS: NON FORMULARY ITEM 1 EA in IV NORMAL SALINE 250ML 230 ML IV SCH (08:55)
[2020-03-19] MEDS: methylPREDNISolone SOD SUCC PF 40 MG/ML VIAL. IV SCH ×2 (08:56→20:46)
[2020-03-19] MEDS: LACTOBACILLUS RHAMNOSUS GG 1 CAPSULE. PO SCH ×2 (08:56→20:47)
[2020-03-19] MEDS: ENOXAPARIN 40 MG/0.4 ML SYRINGE. SQ SCH ×2 (08:56→20:49)
[2020-03-19] MEDS: MULTIVITAMIN with MINERAL TABLET. PO SCH (08:56)
--- NOTE | 2020-03-19 09:30 | PDOC ---
PULMONARY PROGRESS NOTES Subjective Patient about the same discussed with nurse Vitals Vital Signs Date Time Temp Pulse Resp B/P (MAP) Pulse Ox O2 Delivery O2 Flow Rate FiO2 03/19/20 07:15 98.4 63 16 129/74 (92) 97 Nasal Cannula 7.0 98.4 General: Alert HEENT: Other (nc at ) Lungs: Clear Cardiovascular: S2 Neuro Exam: Alert Extremities: No Edema Skin: Warm, No Rashes Labs Laboratory Tests Test 03/17/20 17:20 Fibrinogen 656 mg/dL (200-440) D-Dimer (Mallorie) 0.93 ug/mlFEU (0.00-0.50) Medications Active Scripts Medications Dose Route/Sig Max Daily Dose Days Date Category Gabapentin 600 Mg Tablet 600 Mg PO TID 11/05/18 Rx Medrol (Methylprednisolone) 4 Mg Tab.ds.pk 1 Pkg PO UD 11/05/18 Rx Orphenadrine Citrate 100 Mg Tablet.er 1 Tab PO BID 11/05/18 Rx Diclofenac Potassium 50 Mg Tablet 1 Tab PO BID 11/05/18 Rx Labetalol Hcl 300 Mg Tablet 1 Tab PO BID 07/01/14 Rx Percocet 5-325 Mg Tablet (Oxycodone/Acetaminophen) 1 Each Tablet 1 Tab PO Q4HRS PRN 07/01/14 Rx Ibuprofen 800 Mg Tablet 800 Mg PO Q6H PRN 07/01/14 Rx Impression . IMPRESSION: 1. Acute respiratory failure secondary to pneumonia, COVID-19. 2. Abnormal chest x-ray. 3. Pneumonia. 4. Asthma. 5. COVID-19 viral pneumonia, early ARDS. Plan . Continue support Reassured patient that she will get better Continue steroids Antibiotics per ID Initiate Remdisivir, 03/17 D-dimer and fibrinogen noted Case discussed with pharmacy, and RN. Anticoagulation with LovenoREINA Figueroa MD Mar 19, 2020 09:30
--- NOTE | 2020-03-19 10:50 | NUR ---
SW following. Reviewed chart and spoke with RN and CM. Pt remains on 7l 02 as well as IV Solu-Medrol and Remdisivir. Reassured patient that she will get better Continue steroids Antibiotics per ID Initiate Remdisivir, 03/17 D-dimer and fibrinogen noted
--- NOTE | 2020-03-19 11:07 | PDOC ---
Infectious Disease Note Subjective Subjective Patient says she is feeling better breathing is slightly better ROS ROS No nausea vomiting diarrhea chest pain or fever Vital Sign Vital Signs Vital Signs Date Time Temp Pulse Resp B/P (MAP) Pulse Ox O2 Delivery O2 Flow Rate FiO2 03/19/20 07:15 98.4 63 16 129/74 (92) 97 Nasal Cannula 7.0 98.4 Physical Exam PHYSICAL EXAM GENERAL: Propped up in bed, alert and eating HEENT: Oral cavity, pharynx was clear. NECK: Supple. Good range of motion. LUNGS: CTAB, nonlabored. HEART: S1, S2. ABDOMEN: Obese, soft, nontender, no guarding or rebound. EXTREMITIES: No clubbing, cyanosis or gross edema. SKIN: Warm to touch without signs of rash. NEUROLOGIC: Alert, nonfocal. PIV Objective Assessment COVID-19 viral infection, 7/10 Cough. Bilateral infiltrates. Acute hypoxic respiratory failure, on 3L Obesity. Plan Plan of Care Probiotics Steroids per pulm Airborne isolation for COVID Feeling better less SOA and fever On Remsidivir RAVI REINOSO MD Mar 19, 2020 11:07
[2020-03-19 11:15] VITALS: BP 143/81
--- NOTE | 2020-03-19 13:25 | PDOC ---
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 CHF (congestive heart failure) Eclampsia, with delivery, with current complication PIH ( induced hypertension), antepartum Supervision of normal IUP (intrauterine ) in multigravida Radicular pain in left arm Shortness of breath We will start vitamin C and B1 Will start on convalescent Ig therapy per pulmonary Continue Remdivisir Continue steroids Continue full dose anticoagulation Continue airborne isolation for COVID Continue azithromycin per ID Recs Appreciate pulmonary and ID recs Discussed with RN and wrapper caser History of Present Illness History of Present Illness 44 yo F seen and examined today. patient has been tested positive for covid. She is saturating 93% on 6 L NC. Patient does complain of some hemoptysis. She does not have difficulty breathing but her O2 requirements have increased 03/19/2020 Patient seen and examined bedside today. She does complain of similar amount of hemoptysis compared to yesterday. Her breathing has slightly improved. Instructed patient to ambulate ad petr. She is saturating 96% on 7 L. Vitals/I&O Vitals/I&O: Vital Signs Date Time Temp Pulse Resp B/P (MAP) Pulse Ox O2 Delivery O2 Flow Rate FiO2 03/19/20 11:15 98.4 68 16 143/81 (101) 97 Nasal Cannula 7.0 98.4 I & O 03/18/20 03/18/20 03/19/20 15:00 23:00 07:00 Intake Total 199 ml Balance 199 ml Physical Exam Physical Exam: GENERAL: Propped up in bed, alert and eating HEENT: Oral cavity, pharynx was clear. NECK: Supple. Good range of motion. LUNGS: CTAB, nonlabored. HEART: S1, S2. ABDOMEN: Obese, soft, nontender, no guarding or rebound. EXTREMITIES: No clubbing, cyanosis or gross edema. SKIN: Warm to touch without signs of rash. NEUROLOGIC: Alert, nonfocal. PIV Lungs: Clear Review of Systems Review of Systems: CONSTITUIONAL: Denies weight loss, fever and chills. HEENT: Denies changes in vision and hearing. RESPIRATORY: Complains of cough and hemoptysis. CV: Denies palpitations and CP. GI: Denies abdominal pain, nausea, vomiting and diarrhea. : Denies dysuria and urinary frequency. MSK: Denies myalgia and joint pain. SKIN: Denies rash and pruritus. NEUROLOGICAL: Denies headache and syncope. PSYCHIATRIC: Denies recent changes in mood. Denies anxiety and depression. Assessment and Plan Assessmemt and Plan Problems Medical Problems: (1) Person under investigation for COVID-19 Status: Acute (2) Shortness of breath Status: Acute Comment Review of Relevant I have reviewed the following items leonie (where applicable) has been applied. Justicifation of Admission Dx: Justifications for Admission: Justification of Admission Dx: Yes Respiratory Failure: Severe Resp Distress AUGUSTUS ROPER MD Mar 19, 2020 13:25
[2020-03-19] MEDS: AZITHROMYCIN 500 MG in IV NORMAL SALINE 250ML 250 ML IV SCH (14:22)
[2020-03-19] MEDS: ACETAMINOPHEN 325 MG TABLET. PO PRN (14:23)
[2020-03-19 15:00] VITALS: BP 114/62
[2020-03-19 19:00] VITALS: BP 129/60
[2020-03-19] MEDS: ZOLPIDEM 5 MG TABLET. PO PRN (21:04)
[2020-03-19 23:00] VITALS: BP 133/68
[2020-03-20 03:00] VITALS: BP 128/70
[2020-03-20 07:15] VITALS: BP 113/55
[2020-03-20] MEDS: ENOXAPARIN 40 MG/0.4 ML SYRINGE. SQ SCH ×2 (08:25→20:27)
[2020-03-20] MEDS: ASCORBIC ACID 500 MG TABLET PO SCH (08:25)
[2020-03-20] MEDS: THIAMINE 100 MG TABLET. PO SCH (08:26)
[2020-03-20] MEDS: MULTIVITAMIN with MINERAL TABLET. PO SCH (08:26)
[2020-03-20] MEDS: methylPREDNISolone SOD SUCC PF 40 MG/ML VIAL. IV SCH ×2 (08:26→20:28)
[2020-03-20] MEDS: LACTOBACILLUS RHAMNOSUS GG 1 CAPSULE. PO SCH ×2 (08:26→20:28)
[2020-03-20] MEDS: NON FORMULARY ITEM 1 EA in IV NORMAL SALINE 250ML 230 ML IV SCH (08:40)
--- NOTE | 2020-03-20 09:42 | PDOC ---
Infectious Disease Note Subjective Subjective Patient says she is feeling better breathing is slightly better ROS ROS No nausea vomiting diarrhea Vital Sign Vital Signs Vital Signs Date Time Temp Pulse Resp B/P (MAP) Pulse Ox O2 Delivery O2 Flow Rate FiO2 03/20/20 07:15 98.5 84 18 113/55 (74) 93 Nasal Cannula 5.0 98.5 Physical Exam PHYSICAL EXAM GENERAL: Propped up in bed, alert and eating HEENT: Oral cavity, pharynx was clear. NECK: Supple. Good range of motion. LUNGS: CTAB, nonlabored. HEART: S1, S2. ABDOMEN: Obese, soft, nontender, no guarding or rebound. EXTREMITIES: No clubbing, cyanosis or gross edema. SKIN: Warm to touch without signs of rash. NEUROLOGIC: Alert, nonfocal. PIV Objective Assessment COVID-19 viral infection, 7/10 Cough. Bilateral infiltrates. Acute hypoxic respiratory failure, on 3L Obesity. Plan Plan of Care Probiotics Steroids per pulm Airborne isolation for COVID Feeling better less SOA and fever Remsidivir RAVI REINOSO MD Mar 20, 2020 09:42
--- NOTE | 2020-03-20 10:32 | PDOC ---
PULMONARY PROGRESS NOTES Subjective Patient feels better today less short of air Vitals Vital Signs Date Time Temp Pulse Resp B/P (MAP) Pulse Ox O2 Delivery O2 Flow Rate FiO2 03/20/20 07:15 98.5 84 18 113/55 (74) 93 Nasal Cannula 5.0 98.5 General: Alert HEENT: Other (nc at ) Lungs: Clear Cardiovascular: S2 Neuro Exam: Alert Extremities: No Edema Skin: Warm, No Rashes Medications Active Scripts Medications Dose Route/Sig Max Daily Dose Days Date Category Gabapentin 600 Mg Tablet 600 Mg PO TID 11/05/18 Rx Medrol (Methylprednisolone) 4 Mg Tab.ds.pk 1 Pkg PO UD 11/05/18 Rx Orphenadrine Citrate 100 Mg Tablet.er 1 Tab PO BID 11/05/18 Rx Diclofenac Potassium 50 Mg Tablet 1 Tab PO BID 11/05/18 Rx Labetalol Hcl 300 Mg Tablet 1 Tab PO BID 07/01/14 Rx Percocet 5-325 Mg Tablet (Oxycodone/Acetaminophen) 1 Each Tablet 1 Tab PO Q4HRS PRN 07/01/14 Rx Ibuprofen 800 Mg Tablet 800 Mg PO Q6H PRN 07/01/14 Rx Impression . IMPRESSION: 1. Acute respiratory failure secondary to pneumonia, COVID-19. 2. Abnormal chest x-ray. 3. Pneumonia. 4. Asthma. 5. COVID-19 viral pneumonia, early ARDS. Plan . Decrease oxygen as tolerated Reassured patient that she will get better Continue steroids Antibiotics per ID Initiate Remdisivir, 03/17 D-dimer and fibrinogen noted Case discussed with pharmacy, and RN. Anticoagulation with REINA Morse MD Mar 20, 2020 10:32
[2020-03-20 11:00] VITALS: BP 114/57
[2020-03-20 15:00] VITALS: BP 101/56
[2020-03-20] MEDS: AZITHROMYCIN 500 MG in IV NORMAL SALINE 250ML 250 ML IV SCH (15:01)
--- NOTE | 2020-03-20 16:52 | PDOC ---
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 CHF (congestive heart failure) Eclampsia, with delivery, with current complication PIH ( induced hypertension), antepartum Supervision of normal IUP (intrauterine ) in multigravida Radicular pain in left arm Shortness of breath We will start vitamin C and B1 Will start on convalescent Ig therapy per pulmonary Continue Remdivisir day 3 out of 4 Continue steroids Continue full dose anticoagulation Continue airborne isolation for COVID Continue azithromycin per ID Recs Appreciate pulmonary and ID recs Full dose Lovenox Regular diet Full code Discussed with RN and SW Dispo Will consider discharge when Remdesivir therapy has completed History of Present Illness History of Present Illness 44 yo F seen and examined today. patient has been tested positive for covid. She is saturating 93% on 6 L NC. Patient does complain of some hemoptysis. She does not have difficulty breathing but her O2 requirements have increased 03/20/2020 No acute events overnight. Patient has endorsed decrease in her hemoptysis and improvement in her breathing. She continues to saturate 94% on 5 L nasal cannula. 03/19/2020 Patient seen and examined bedside today. She does complain of similar amount of hemoptysis compared to yesterday. Her breathing has slightly improved. Instructed patient to ambulate ad petr. She is saturating 96% on 7 L. Vitals/I&O Vitals/I&O: Vital Signs Date Time Temp Pulse Resp B/P (MAP) Pulse Ox O2 Delivery O2 Flow Rate FiO2 03/20/20 15:00 98.0 65 16 101/56 (71) 95 Nasal Cannula 5.0 98.0 I & O 03/19/20 03/19/20 03/20/20 15:00 23:00 07:00 Intake Total 0 ml 50 ml Balance 0 ml 50 ml Physical Exam Physical Exam: GENERAL: Propped up in bed, alert and eating HEENT: Oral cavity, pharynx was clear. NECK: Supple. Good range of motion. LUNGS: CTAB, nonlabored. HEART: S1, S2. ABDOMEN: Obese, soft, nontender, no guarding or rebound. EXTREMITIES: No clubbing, cyanosis or gross edema. SKIN: Warm to touch without signs of rash. NEUROLOGIC: Alert, nonfocal. PIV Lungs: Clear Review of Systems Review of Systems: CONSTITUIONAL: Denies weight loss, fever and chills. HEENT: Denies changes in vision and hearing. RESPIRATORY: Denies SOB and cough. CV: Denies palpitations and CP. GI: Denies abdominal pain, nausea, vomiting and diarrhea. : Denies dysuria and urinary frequency. MSK: Denies myalgia and joint pain. SKIN: Denies rash and pruritus. NEUROLOGICAL: Denies headache and syncope. PSYCHIATRIC: Denies recent changes in mood. Denies anxiety and depression. Assessment and Plan Assessmemt and Plan Problems Medical Problems: (1) Person under investigation for COVID-19 Status: Acute (2) Shortness of breath Status: Acute Comment Review of Relevant I have reviewed the following items leonie (where applicable) has been applied. Medications: Current Medications Medications (Trade) Dose Ordered Sig/Rachael Route PRN Reason Start Time Stop Time Status Last Admin Dose Admin Ascorbic Acid (Vitamin C) 500 mg DAILY PO 03/20/20 09:00 03/20/20 08:25 Thiamine Mononitrate (Vitamin B-1) 100 mg DAILY PO 03/20/20 09:00 03/20/20 08:26 Justicifation of Admission Dx: Justifications for Admission: Justification of Admission Dx: Yes Respiratory Failure: Severe Resp Distress AUGUSTUS ROPER MD Mar 20, 2020 16:52
--- NOTE | 2020-03-20 17:35 | NUR ---
SW following for discharge planning. Pt from home with family. Discharge plan remains home when stable. Pt is a potential discharge this weekend per continued Remdisivir. Pt remains on IV abx and is on 5l 02. Pt's family has agreed to pay for 02 if needed at discharge. SW to continue following.
[2020-03-20 19:20] VITALS: BP 101/57
[2020-03-20] MEDS: ZOLPIDEM 5 MG TABLET. PO PRN (20:28)
[2020-03-20 23:23] VITALS: BP 141/77
[2020-03-21 03:20] VITALS: BP 119/68
[2020-03-21 07:00] VITALS: BP 102/57
[2020-03-21] MEDS: THIAMINE 100 MG TABLET. PO SCH (09:21)
[2020-03-21] MEDS: MULTIVITAMIN with MINERAL TABLET. PO SCH (09:21)
[2020-03-21] MEDS: LACTOBACILLUS RHAMNOSUS GG 1 CAPSULE. PO SCH (09:21)
[2020-03-21] MEDS: ASCORBIC ACID 500 MG TABLET PO SCH (09:21)
[2020-03-21] MEDS: NON FORMULARY ITEM 1 EA in IV NORMAL SALINE 250ML 230 ML IV SCH (09:21)
[2020-03-21] MEDS: methylPREDNISolone SOD SUCC PF 40 MG/ML VIAL. IV SCH (09:21)
[2020-03-21] MEDS: ENOXAPARIN 40 MG/0.4 ML SYRINGE. SQ SCH (09:58)
--- NOTE | 2020-03-21 10:32 | PDOC ---
Infectious Disease Note Subjective Subjective Patient says she is feeling better Wants to go home She will buy oxygen for home use she says ROS ROS Nausea vomiting diarrhea chest pain Vital Sign Vital Signs Vital Signs Date Time Temp Pulse Resp B/P (MAP) Pulse Ox O2 Delivery O2 Flow Rate FiO2 03/21/20 07:00 98.1 66 14 102/57 (72) 93 Nasal Cannula 5.0 98.1 Physical Exam PHYSICAL EXAM GENERAL: Propped up in bed, alert and eating HEENT: Oral cavity, pharynx was clear. NECK: Supple. Good range of motion. LUNGS: CTAB, nonlabored. HEART: S1, S2. ABDOMEN: Obese, soft, nontender, no guarding or rebound. EXTREMITIES: No clubbing, cyanosis or gross edema. SKIN: Warm to touch without signs of rash. NEUROLOGIC: Alert, nonfocal. PIV Objective Assessment COVID-19 viral infection, 7/10 Cough. Bilateral infiltrates. Acute hypoxic respiratory failure, on 3L Obesity. Plan Plan of Care Probiotics Steroids per pulm Airborne isolation for COVID Feeling better less SOA and fever Remsidivir Patient can be discharged if oxygen is arranged at home RAVI REINOSO MD Mar 21, 2020 10:32
[2020-03-21 11:00] VITALS: BP 103/59
--- NOTE | 2020-03-21 12:12 | NUR ---
SW following. Reviewed chart and spoke with RN and CM. Coordinated care with Dr. Steele. Pt ready for discharge today to home with family and self-quarantine. Pt to discharge on oral medications. Spoke with pt's son Donato who remains agreeable to paying for home 02 for pt. INDIRA obtained orders and faxed them to Russ at [facility], , (fax). Patient Choice of Vendor form completed. Pt to discharge with 02 tank via transport from [facility] at 1500 and [facility] to deliver home 02 setup at 1530 as pt is on 5l 02. No further INDIRA needs at this time. Addendum: 03/21/20 at 1603 by ELLIOT JACOBSON Pt sent with 02 tank from [facility] per approval from Russ as autumn made arrangements to pay for 02 for pt at home.
--- NOTE | 2020-03-21 15:15 | DISCH ---
DISCHARGE INSTRUCTIONS Condition on Discharge Condition on Discharge: Stable (You will need to stay quarantined for at least 14 days. Wear facemask when in close contact to your friends or family) Activity After Discharge Activity Instructions for Disc: Resume previous activity, Activity as tolerated Lifting Instructions after Dis: No heavy lifting, Do not lift >10 pounds Exercise Instruction after Dis: Progress as tolerated Driving Instructions after Dis: No driving for 2 weeks Diet after Discharge Diet after Discharge: Regular Wound Incision Care Wound/Incision Care: May get incision wet Checks after Discharge Checks after discharge: Check blood press - daily, Check your Temp as needed Contacting the DR. after DC Call your doctor for: If your condition worsens Treatment/Equipment after DC Adaptive Equipment Issued: None AUGUSTUS ROPER MD Mar 21, 2020 15:15
[2020-03-21 15:22] VITALS: BP 113/63
--- NOTE | 2020-03-21 15:35 | PDOC ---
PULMONARY PROGRESS NOTES Subjective Patient feels better today less short of air Vitals Vital Signs Date Time Temp Pulse Resp B/P (MAP) Pulse Ox O2 Delivery O2 Flow Rate FiO2 03/21/20 15:22 97.9 82 16 113/63 (80) 93 Nasal Cannula 5.0 97.9 General: Alert HEENT: Other (nc at ) Lungs: Clear Cardiovascular: S2 Neuro Exam: Alert Extremities: No Edema Skin: Warm, No Rashes Medications Active Scripts Medications Dose Route/Sig Max Daily Dose Days Date Category Gabapentin 600 Mg Tablet 600 Mg PO TID 11/05/18 Rx Medrol (Methylprednisolone) 4 Mg Tab.ds.pk 1 Pkg PO UD 11/05/18 Rx Orphenadrine Citrate 100 Mg Tablet.er 1 Tab PO BID 11/05/18 Rx Diclofenac Potassium 50 Mg Tablet 1 Tab PO BID 11/05/18 Rx Labetalol Hcl 300 Mg Tablet 1 Tab PO BID 07/01/14 Rx Percocet 5-325 Mg Tablet (Oxycodone/Acetaminophen) 1 Each Tablet 1 Tab PO Q4HRS PRN 07/01/14 Rx Ibuprofen 800 Mg Tablet 800 Mg PO Q6H PRN 07/01/14 Rx Impression . IMPRESSION: 1. Acute respiratory failure secondary to pneumonia, COVID-19. 2. Abnormal chest x-ray. 3. Pneumonia. 4. Asthma. 5. COVID-19 viral pneumonia, early ARDS. Plan . Okay to discharge home follow-up with me in May Oxygen to be arranged REINA ENAMORADO MD Mar 21, 2020 15:35
--- NOTE | 2020-03-21 16:03 | PDOC3 ---
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 She presents today with shortness of breath fever headache and chest pain. Patient was admitted for further care she underwent evaluation for pulmonary embolism because of her desaturation she required high oxygen requirements initially. She had elevated D-dimers and I was having extremely short of breath. She was continued on full dose anticoagulation. She was seen by pulmonary and ID. She was treated with IV steroids, Remdesivir, IV antibiotics. Her saturations had slowly improved in which she was remaining on 94% on 5 L nasal cannula. Patient was able to ambulate on her own without extreme desats. Patient will go home with home oxygen that her family will find privately for. S the rest of the hospital course was uneventful he will Disposition: Disposition/Orders: D/C to Home Activity: Activity: Resume previous activity Medications: Home Meds Active Scripts Gabapentin (GABAPENTIN) 600 Mg Tablet, 600 MG PO TID for NEUROGENIC PAIN, #30 TAB Prov:OFE VAN DOUBLE NEEDLE OPERATOR LOCKSTITCH 11/05/18 Methylprednisolone (MEDROL) 4 Mg Tab.ds.pk, 1 PKG PO UD, #1 PKG Prov:AURELIAAOFE DOUBLE NEEDLE OPERATOR LOCKSTITCH 11/05/18 Diclofenac Potassium (DICLOFENAC POTASSIUM) 50 Mg Tablet, 1 TAB PO BID, #20 TAB 0 Refills Prov:MUTUNGAOFE DOUBLE NEEDLE OPERATOR LOCKSTITCH 11/05/18 Labetalol Hcl (LABETALOL HCL) 300 Mg Tablet, 1 TAB PO BID, #60 TAB 5 Refills Prov:RICCARDO MILLER MD 07/01/14 Ibuprofen (IBUPROFEN) 800 Mg Tablet, 800 MG PO Q6H PRN for PAIN, #30 TAB Prov:RICCARDO MILLER MD 07/01/14 Discontinued Scripts Orphenadrine Citrate (ORPHENADRINE CITRATE) 100 Mg Tablet.er, 1 TAB PO BID, #60 TAB 1 Refill Prov:OFE VAN SHARI 11/05/18 Oxycodone/Apap 5-325 (PERCOCET 5-325 MG TABLET ) 1 Each Tablet, 1 TAB PO Q4HRS PRN for PAIN, #60 TAB Prov:RICCARDO MILLER MD 07/01/14 Scheduled Diclofenac Potassium (Diclofenac Potassium), 1 TAB PO BID Gabapentin (Gabapentin), 600 MG PO TID Labetalol Hcl (Labetalol Hcl), 1 TAB PO BID Methylprednisolone (Medrol), 1 PKG PO UD Scheduled PRN Ibuprofen (Ibuprofen), 800 MG PO Q6H PRN for PAIN Discontinued Medications Orphenadrine Citrate (Orphenadrine Citrate), 1 TAB PO BID Oxycodone/Apap 5-325 (Percocet 5-325 Mg Tablet ), 1 TAB PO Q4HRS PRN for PAIN Total Time: Total Time: Total time spent is greater than 38 minutes Physical Exam General Appearance: no apparent distress HEENT: PERRL/EOMI Neck: non-tender Respiratory: chest non-tender, lungs clear Cardiovascular: normal peripheral pulses Gastrointestinal: normal bowel sounds Justicifation of Admission Dx: Justifications for Admission: Justification of Admission Dx: Yes Respiratory Failure: Severe Resp Distress AUGUSTUS ROPER MD Mar 21, 2020 16:03
--- NOTE | 2020-03-21 16:45 | NUR ---
Discharge Note: DEBBY SIMONS [address] Discharge instructions and discharge home medications reviewed with Patient and a copy given. All questions have been answered and understanding verbalized. The following instructions and handouts were given: discharge instruction given. Discontinued lines and drains:catheter tip intact.Patient tolerated well. Patient discharged to home via personal vehicle. Patient received oxygen tank at discharge.
== END 2020-03-21 16:30 | disposition home or self-care (01) | DRG 177 ==
LOC: ER 10:38 → 6 SOUTH 13:48
PROVIDERS: ADMIT Internal Medicine; ATTEND Internal Medicine
PROC: 30233K1 Transfusion of Nonautologous Frozen Plasma into Peripheral Vein, Percutaneous Approach (ICD-10-PCS; principal; 2020-03-18)
DX: U07.1 COVID-19 (principal); J12.89 Other viral pneumonia; J96.01 Acute respiratory failure with hypoxia; E66.9 Obesity, unspecified; I50.9 Heart failure, unspecified; J45.909 Unspecified asthma, uncomplicated; Z82.49 Family history of ischemic heart disease and other diseases of the circulatory system; I25.2 Old myocardial infarction; Z98.891 History of uterine scar from previous surgery
CPT/HCPCS: 36415; 71045; 71275; 80053; 81001; 81025; 82550; 82728; 83036; 83690; 83735; 83880; 84484; 85007; 85025; 85379; 85384; 86140; 86850; 86900; 86901; 86927; 96365; 96375; J0456; J1100; J1650; J2543; J2920; J7050; Q9967; 99285-25; G0378; J7030; P9017; U0003-CS